=== PATIENT | female | born 1930 | race Asian ===

== ENCOUNTER 2019-02-06 15:25 | Inpatient (IN) | payer MEDICARE, OTHER ==
[~2019-02-06] VITALS: Ht 157.5 cm; Wt 69.4 kg
[2019-02-06] MEDS ORDERED: DEXAMETHASONE 10 MG/ML 1 ML INJ IV STA (15:34)
[2019-02-06] MEDS ORDERED: AZITHROMYCIN 500MG/NS (PMX) 250 ML IV STA (16:30)
[2019-02-06] MEDS ORDERED: SODIUM CHLORIDE 0.9% 1L BAG IV* STA (16:30)
[2019-02-06] MEDS ORDERED: CEFTRIAXONE 1 GM/50 ML (PMX) 50 ML IVPB STA (16:30)
[2019-02-06] MEDS ORDERED: ATOR10TA65 PO (16:48)
[2019-02-06] MEDS ORDERED: LOSA100T15 PO (16:48)
--- NOTE | 2019-02-06 18:52 | HP ---
Date/Time of Note Date/Time of Note DATE: 02/06/19 TIME: 18:46 Assessment/Plan VTE Prophylaxis SCD applied (from Nsg): Yes Pharmacological prophylaxis: heparin Assessment/Plan Hospital Course Elderly female resting in bed Alert and interactive Audibly wheezing Nonlabored but mildly tachypneic Rhythm regular rate and rhythm Neck veins are flat Abdomen is soft nontender nondistended This is an 89-year-old female with a history of COPD, CKD 3, and hypertension w ho presents with an acute COPD exacerbation Acute COPD exacerbation: -Steroids, bronchodilators, and azithromycin CKD 3,: -She has a known history of chronic kidney disease. I suspect she is at her baseline. We will trend her creatinine Result Diagram: 02/06/19 1547 02/06/19 1546 Results 24hrs Laboratory Tests Test 02/06/19 15:46 02/06/19 15:47 02/06/19 16:49 Sodium Level 139 Potassium Level 5.0 Chloride Level 111 H Carbon Dioxide Level 16 L Anion Gap 12 Blood Urea Nitrogen 58 H Creatinine 2.68 H Est Glomerular Filtrat Rate mL/min Glucose Level 173 Calcium Level 8.2 L Troponin I 0.014 White Blood Count 7.6 Red Blood Count 3.92 L Hemoglobin 11.5 L Hematocrit 36.6 L Mean Corpuscular Volume 93.4 Mean Corpuscular Hemoglobin 29.3 Mean Corpuscular Hemoglobin Concent 31.4 L Red Cell Distribution Width 13.2 Platelet Count 150 Mean Platelet Volume 10.5 H Immature Granulocytes % 0.300 Neutrophils % 50.6 Lymphocytes % 32.0 Monocytes % 14.9 H Eosinophils % 1.5 Basophils % 0.7 Nucleated Red Blood Cells % 0.0 Immature Granulocytes # 0.020 Neutrophils # 3.8 Lymphocytes # 2.4 Monocytes # 1.1 H Eosinophils # 0.1 Basophils # 0.1 Nucleated Red Blood Cells # 0.0 POC Venous Lactate 1.9 HPI/ROS Admit Date/Time Admit Date/Time Hx of Present Illness This is an 89-year-old female with a history of COPD, diabetes, and hypertension who presents with respiratory distress Patient is accompanied by her son who provides the history. She has developed wheezing and shortness of breath with cough for the last 3 days. She has a known history of COPD but does not appear to be on any medications for this. Today her son called 911 as she was visibly having a hard time breathing. She was given nebulizers in the field with benefit. Here remains in some difficulty and is having a tough time making full sentences but her breathing is nonlabored ROS Constitutional: no complaints, improved Eyes: no complaints ENT: no complaints Respiratory: no complaints Cardiovascular: no complaints Gastrointestinal: no complaints Genitourinary: no complaints Musculoskeletal: no complaints Skin: no complaints Neurologic: no complaints Endocrine: no complaints Lymphatic: no complaints Psychological: no complaints, nl mood/affect Immunologic: no complaints PMH/Family/Social Past Medical History COPD Hypertension Chronic kidney disease Coded Allergies: No Known Allergy (Unverified , 02/06/19) Past Surgical History Past Surgical Hx: no surgical history Family History Significant Family History: no pertinent family hx Social History Alcohol Use: none Smoking Status: Never smoker Drug Use: none Exam/Review of Systems Vital Signs Vitals Vital Signs Date Temp Pulse Resp B/P (MAP) Pulse Ox O2 O2 Flow FiO2 Time Delivery Rate 02/06/19 97.9 104 27 100/53 100 Room Air 18:22 (69) RAKAN REHMAN MD February 06, 2019 18:52
[2019-02-06] MEDS ORDERED: HYDROCODONE/APAP (5/325) TAB PO PRN (19:00)
[2019-02-06] MEDS ORDERED: NACL 0.9% 3 ML SYG IV SCH (19:00)
[2019-02-06] MEDS ORDERED: ONDANSETRON 4 MG INJ IV PRN (19:30)
[2019-02-06] MEDS ORDERED: ACETAMINOPHEN 325 MG TAB PO PRN (19:30)
--- NOTE | 2019-02-06 20:21 | ERD ---
ER Documentation Chief Complaint Chief Complaint BIB RA 89 FROM HOME FOR C/O SOB, COUGH X3 DAYS WITH SOME WHEEZING HPI This is an 89-year-old female history of COPD who presents the emergency with 3 days of cough and congestion. History is later provided by family member. The patient had described approximately 3 days of slightly productive cough and wheezing with shortness of breath that worsened today that prompted EMS phone call. The patient describes the symptoms as moderate though dramatically improved after breathing treatment in the field. No chest pressure or exertional symptoms. ROS All systems reviewed and are negative except as per history of present illness. 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) Hx Respiratory Disorders: Yes (COPD,A STHMA) Hx Cardiac Disorders: Yes (HTN) Hx Psychiatric Problems: No Hx Miscellaneous Medical Probl: Yes (KIDNEY FAILURE) Hx Alcohol Use: No Hx Substance Use: No Hx Tobacco Use: No Smoking Status: Never smoker FmHx Family History: No diabetes Physical Exam Vitals Vital Signs Date Temp Pulse Resp B/P (MAP) Pulse Ox O2 O2 Flow FiO2 Time Delivery Rate 02/06/19 97.9 104 27 100/53 100 Room Air 18:22 (69) 02/06/19 91 18 113/54 98 Room Air 17:26 (73) 02/06/19 100 26 93/52 (66) 99 Room Air 16:25 02/06/19 98.9 102 18 140/69 99 15:30 (92) Physical Exam General: Well developed, well nourished, no acute distress Head: Normocephalic, atraumatic. Eyes: Pupils equally reactive, EOM intact ENT: Moist mucous membranes Neck: Supple, no lymphadenopathy Respiratory: scant wheeze but good aeration Cardiovascular: RRR, no murmurs, rubs, or gallops Abdominal: Soft, non-tender, non-distended, no peritoneal signs : Deferred MSK: No edema, no unilateral swelling, right-sided deficit secondary to a subacute stroke Neurologic: Alert and oriented, prior right-sided deficit Skin: No rash Psych: Normal mood Result Diagram: 02/06/19 1547 02/06/19 1546 Results 24 hrs Laboratory Tests Test 02/06/19 15:46 02/06/19 15:47 02/06/19 16:49 02/06/19 18:55 Sodium Level 139 mmol/L Potassium Level 5.0 mmol/L Chloride Level 111 mmol/L Carbon Dioxide 16 mmol/L Level Anion Gap 12 Blood Urea Nitrogen 58 mg/dl Creatinine 2.68 mg/dl Est Glomerular mL/min Filtrat Rate mL/min Glucose Level 173 mg/dl Calcium Level 8.2 mg/dl Troponin I 0.014 ng/ml White Blood Count 7.6 10^3/ul Red Blood Count 3.92 10^6/ul Hemoglobin 11.5 g/dl Hematocrit 36.6 % Mean Corpuscular 93.4 fl Volume Mean Corpuscular 29.3 pg Hemoglobin Mean Corpuscular 31.4 g/dl Hemoglobin Concent Red Cell 13.2 % Distribution Width Platelet Count 150 10^3/UL Mean Platelet 10.5 fl Volume Immature 0.300 % Granulocytes % Neutrophils % 50.6 % Lymphocytes % 32.0 % Monocytes % 14.9 % Eosinophils % 1.5 % Basophils % 0.7 % Nucleated Red Blood 0.0 /100WBC Cells % Immature 0.020 10^3/ul Granulocytes # Neutrophils # 3.8 10^3/ul Lymphocytes # 2.4 10^3/ul Monocytes # 1.1 10^3/ul Eosinophils # 0.1 10^3/ul Basophils # 0.1 10^3/ul Nucleated Red Blood 0.0 10^3/ul Cells # POC Venous Lactate 1.9 mmol/L Lactic Acid Level 3.1 mmol/L Test 02/06/19 19:24 POC Venous Lactate 2.3 mmol/L Current Medications Medications Dose Sig/Jose Start Time Status Last (Trade) Ordered Route PRN Stop Time Admin Dose Reason Admin 10 mg ONCE STAT 02/06/19 DC 02/06/19 Dexamethasone IV 15:34 15:56 (Decadron) 02/06/19 15:35 Sodium 2,190 ml BOLUS OVER 2 02/06/19 DC 02/06/19 Chloride HOURS STAT 16:30 16:45 (NS) IV* 02/06/19 16:32 Ceftriaxone 50 ml @ ONCE STAT 02/06/19 DC 02/06/19 Sodium 100 mls/hr IVPB 16:30 17:00 02/06/19 16:59 Azithromycin 250 ml @ ONCE STAT 02/06/19 DC 02/06/19 250 mls/hr IV 16:30 17:25 02/06/19 17:29 Prednisone 40 mg DAILY PO 02/07/19 (Prednisone) 09:00 Albuterol/ 3 ml Q4H RESP 02/06/19 Ipratropium THERAPY HHN 21:00 (Duoneb) 250 mg DAILY PO 02/07/19 Azithromycin 09:00 (Zithromax) IV Flush 3 ml PER 02/06/19 (NS 3 ml) PROTOCOL IV 19:00 1 tab Q6H PRN 02/06/19 Acetaminophen PO .MOD PAIN 19:00 / 4-6 Hydrocodone Bitart ([place] (5/325)) Heparin 5,000 unit Q12 SC 02/06/19 Sodium 21:00 (Porcine) (Heparin (5000 Units/1ml)) Ondansetron 4 mg BRIDGE ORDER 02/06/19 HCl (Zofran PRN IV 19:30 Inj) NAUSEA/VOMITI 02/07/19 19:29 NG 650 mg ER BRIDGE 02/06/19 Acetaminophen PRN PO 19:30 (Tylenol .MILD PAIN 02/07/19 19:29 Tab) 1-3 OR TEMP Procedures/MDM EKG, MONITORS, & DIAGNOSTIC IMAGING: EKG: I reviewed and interpreted a 12-lead EKG. Rhythm: Normal sinus rhythm ST Changes: No contiguous ST segment elevations T waves: No contiguous T wave inversions Impression: No evidence of acute cardiac ischemia CXR IMPRESSION: Cardiomegaly with calcified atherosclerosis in the aorta. Atelectasis versus minimal focal infiltrate in the right upper lobe, along the right minor fissure. Scattered atelectasis in the remainder of the lungs. Hypoinflated lungs. LAB INTERPRETATION: I reviewed the laboratory testing and it shows nonspecific lactic acidosis MEDICAL DECISION MAKING: Patient presents with cough congestion with wheezing relieved by breathing treatment. Clinical exam and history is very consistent with COPD with exacerbation. Initially the patient did not have a family member therefore pipe connector was not available. Patient cannot verbalize what language she spoke. Later we got a better history when the family member arrived. The patient's laboratory testing are reassuring other than mild nonspecific lactic acidosis. The patient did have tachycardia and slight tachypnea. Given productive cough and symptoms this is concerning for possible community acquired pneumonia. ER COURSE: * Around 1630 was noted that the patient may have pneumonia. Her blood pressure is borderline. At that time blood cultures and broad-spectrum antibiotics were ordered. * Patient was given appropriate fluid resuscitation. Blood cultures prior to broad-spectrum antibiotics. Patient will be admitted. * Patient is stabilized and does not require positive pressure intervention or central line or pressors CONSULTATION: None DISPOSITION PLAN: Medical surgical admission Accepting care team and consultations: I discussed the current laboratory data, diagnostic imaging and emergency care provided. Admitting team: Dr. Chandler Admitting team indication: Insurance directed Sepsis Documentation: Patient's infectious symptoms have not stabilized and the patient is at risk of rapid decompensation. The patient will be admitted for careful hydration, anti biotic therapy, and infectious source control. SEVERE SEPSIS CRITERIA: Infectious source: Community-acquired pneumonia End organ damage indicated by: [Lactate > 2.0 mmol/L SEPSIS MANAGEMENT Time of recognition of sepsis: 1619. Time of recognition of severe sepsis: 1923 Time of recognition of septic shock: No septic shock at this time. 3 HOUR BUNDLE Blood cultures x 2 before broad-spectrum antibiotics: Yes 30 ml/kg NS bolus completed Initial lactate 1.9 Repeat lactate 2.3 of note there was a lactate of 3.1 but this was a lab and did not fit with patient's clinical picture. [id number] was repeated at the same time shows 2.3. SEPTIC SHOCK ASSESSMENT: No lactic acid > 4.0 No persistent hypotension (SBP < 90 or 40 mmHg drop, MAP < 65) despite 30 mL/kg IV fluid bolus VOLUME REASSESSMENT FOR SEPTIC SHOCK: The patient does not meet criteria for septic shock in the emergency department at this time PERSISTENT HYPOTENSION TREATMENT: Comfort care no Central line not Required Vasopressor started not required I considered further perfusion assessment with CVP measurement, SCVO2, bedside ultrasound volume assessment, passive leg raise, trial of further fluid bolus. And proceeded with 30 ml/kg fluid bolus of NSS, broad spectrum antibiotics, and admission. CRITICAL CARE Critical care time 35 minutes Emergent fluid management while maintaining close respiratory support. Provision of immediate and broad-spectrum antibiotic therapy. Simultaneous assessment for possible sources in order to direct targeted therapy. Consideration for invasive and chemical support to prevent cardiopulmonary collapse. Critical care time is independent of procedures performed. Departure Diagnosis: Primary Impression: Community acquired pneumonia Laterality: unspecified laterality Qualified Codes: J18.9 - Pneumonia, unspecified organism Additional Impressions: Severe sepsis Chronic kidney disease Chronic kidney disease stage: unspecified stage Qualified Codes: N18.9 - Chronic kidney disease, unspecified Condition: Stable FADIA HITCHCOCK MD February 06, 2019 20:21
[2019-02-06] MEDS: HEPARIN 5,000 UNIT/1 ML VIAL SC SCH (21:00)
[2019-02-06] MEDS ORDERED: SOD CHLORIDE 0.9% 500 ML IV ONE (23:00)
[2019-02-06 23:24] VITALS: BP 116/55; PULSE 88; RESP 20
[2019-02-07 02:00] VITALS: BP 109/56; PULSE 87; RESP 20
[2019-02-07] MEDS: ALBUTEROL/IPRATROPIUM (NEB) 3 ML AMP HHN SCH ×6 (04:31→21:05)
[2019-02-07] MEDS ORDERED: SOD CHLORIDE 0.9% 500 ML IV ONE (07:00)
[2019-02-07 08:25] VITALS: BP 110/63; PULSE 107; RESP 20
[2019-02-07] MEDS: HEPARIN 5,000 UNIT/1 ML VIAL SC SCH (09:00)
[2019-02-07] MEDS: AZITHROMYCIN 250 MG TAB PO SCH (09:05)
[2019-02-07] MEDS: predniSONE 20 MG TAB PO SCH (09:06)
--- NOTE | 2019-02-07 14:34 | PN ---
Date/Time of Note Date/Time of Note DATE: 02/07/19 TIME: 14:31 Assessment/Plan VTE Prophylaxis Risk score (from Nsg)>0 risk: 3 SCD applied (from Nsg): Yes Pharmacological prophylaxis: heparin Lines/Catheters IV Catheter Type (from Nrsg): Peripheral IV Assessment/Plan Hospital Course Elderly female resting in bed Alert and interactive Audibly wheezing Nonlabored Rhythm regular rate and rhythm Neck veins are flat Abdomen is soft nontender nondistended This is an 89-year-old female with a history of COPD, CKD 3, and hypertension who presents with an acute COPD exacerbation Acute COPD exacerbation: -Steroids, bronchodilators, and azithromycin CKD 3,: -She has a known history of chronic kidney disease. I suspect she is at her baseline. We will trend her creatinine She shows no signs of shock, i suspect lactic acidosis is from albuterol Result Diagram: 02/07/19 0457 02/07/19 0457 Results 24hrs Laboratory Tests Test 02/06/19 15:46 02/06/19 15:47 02/06/19 16:49 02/06/19 18:55 Sodium Level 139 Potassium Level 5.0 Chloride Level 111 H Carbon Dioxide Level 16 L Anion Gap 12 Blood Urea Nitrogen 58 H Creatinine 2.68 H Est Glomerular Filtrat Rate mL/min Glucose Level 173 Calcium Level 8.2 L Troponin I 0.014 White Blood Count 7.6 Red Blood Count 3.92 L Hemoglobin 11.5 L Hematocrit 36.6 L Mean Corpuscular 93.4 Volume Mean Corpuscular 29.3 Hemoglobin Mean Corpuscular 31.4 L Hemoglobin Concent Red Cell 13.2 Distribution Width Platelet Count 150 Mean Platelet Volume 10.5 H Immature 0.300 Granulocytes % Neutrophils % 50.6 Lymphocytes % 32.0 Monocytes % 14.9 H Eosinophils % 1.5 Basophils % 0.7 Nucleated Red Blood 0.0 Cells % Immature 0.020 Granulocytes # Neutrophils # 3.8 Lymphocytes # 2.4 Monocytes # 1.1 H Eosinophils # 0.1 Basophils # 0.1 Nucleated Red Blood 0.0 Cells # POC Venous Lactate 1.9 Lactic Acid Level 3.1 *H Test 02/06/19 19:24 02/06/19 22:07 02/07/19 04:57 02/07/19 10:58 POC Venous Lactate 2.3 *H Lactic Acid Level 4.5 *H 2.4 *H 3.5 *H White Blood Count 5.5 # Red Blood Count 3.49 L Hemoglobin 10.4 L Hematocrit 32.3 L Mean Corpuscular 92.6 Volume Mean Corpuscular 29.8 Hemoglobin Mean Corpuscular 32.2 Hemoglobin Concent Red Cell 13.3 Distribution Width Platelet Count 143 Mean Platelet Volume 11.1 H Immature 0.400 Granulocytes % Neutrophils % 75.1 Lymphocytes % 20.3 Monocytes % 4.0 Eosinophils % 0.0 Basophils % 0.2 Nucleated Red Blood 0.0 Cells % Immature 0.020 Granulocytes # Neutrophils # 4.1 Lymphocytes # 1.1 Monocytes # 0.2 L Eosinophils # 0.0 Basophils # 0.0 Nucleated Red Blood 0.0 Cells # Sodium Level 143 Potassium Level 5.8 H Chloride Level 118 H Carbon Dioxide Level 14 L Anion Gap 11 Blood Urea Nitrogen 48 H Creatinine 2.09 H Est Glomerular Filtrat Rate mL/min Glucose Level 159 Hemoglobin A1c 5.9 Calcium Level 7.8 L Total Bilirubin 0.1 L Direct Bilirubin 0.00 Indirect Bilirubin 0.1 Aspartate Amino 25 Transf (AST/SGOT) Alanine 26 Aminotransferase (AL T/SGPT) Alkaline Phosphatase 84 Total Protein 6.7 Albumin 3.1 L Globulin 3.60 H Albumin/Globulin 0.86 Ratio Subjective 24 Hr Interval Summary Free Text/Dictation Breathing improving Still not back to baseline however, with wheezign still Exam/Review of Systems Exam Vitals Vital Signs Date Temp Pulse Resp B/P (MAP) Pulse Ox O2 O2 Flow FiO2 Time Delivery Rate 02/07/19 96 26 97 21 13:59 02/07/19 98.1 110/63 Room Air 08:25 (79) Intake and Output 02/06/19 02/06/19 02/07/19 1515:00 23:00 07:00 IntakeIntake Total 2440 ml BalanceBalance 2440 ml Results Results 24hrs Laboratory Tests Test 02/06/19 15:46 02/06/19 15:47 02/06/19 16:49 02/06/19 18:55 Sodium Level 139 Potassium Level 5.0 Chloride Level 111 H Carbon Dioxide Level 16 L Anion Gap 12 Blood Urea Nitrogen 58 H Creatinine 2.68 H Est Glomerular Filtrat Rate mL/min Glucose Level 173 Calcium Level 8.2 L Troponin I 0.014 White Blood Count 7.6 Red Blood Count 3.92 L Hemoglobin 11.5 L Hematocrit 36.6 L Mean Corpuscular 93.4 Volume Mean Corpuscular 29.3 Hemoglobin Mean Corpuscular 31.4 L Hemoglobin Concent Red Cell 13.2 Distribution Width Platelet Count 150 Mean Platelet Volume 10.5 H Immature 0.300 Granulocytes % Neutrophils % 50.6 Lymphocytes % 32.0 Monocytes % 14.9 H Eosinophils % 1.5 Basophils % 0.7 Nucleated Red Blood 0.0 Cells % Immature 0.020 Granulocytes # Neutrophils # 3.8 Lymphocytes # 2.4 Monocytes # 1.1 H Eosinophils # 0.1 Basophils # 0.1 Nucleated Red Blood 0.0 Cells # POC Venous Lactate 1.9 Lactic Acid Level 3.1 *H Test 02/06/19 19:24 02/06/19 22:07 02/07/19 04:57 02/07/19 10:58 POC Venous Lactate 2.3 *H Lactic Acid Level 4.5 *H 2.4 *H 3.5 *H White Blood Count 5.5 # Red Blood Count 3.49 L Hemoglobin 10.4 L Hematocrit 32.3 L Mean Corpuscular 92.6 Volume Mean Corpuscular 29.8 Hemoglobin Mean Corpuscular 32.2 Hemoglobin Concent Red Cell 13.3 Distribution Width Platelet Count 143 Mean Platelet Volume 11.1 H Immature 0.400 Granulocytes % Neutrophils % 75.1 Lymphocytes % 20.3 Monocytes % 4.0 Eosinophils % 0.0 Basophils % 0.2 Nucleated Red Blood 0.0 Cells % Immature 0.020 Granulocytes # Neutrophils # 4.1 Lymphocytes # 1.1 Monocytes # 0.2 L Eosinophils # 0.0 Basophils # 0.0 Nucleated Red Blood 0.0 Cells # Sodium Level 143 Potassium Level 5.8 H Chloride Level 118 H Carbon Dioxide Level 14 L Anion Gap 11 Blood Urea Nitrogen 48 H Creatinine 2.09 H Est Glomerular Filtrat Rate mL/min Glucose Level 159 Hemoglobin A1c 5.9 Calcium Level 7.8 L Total Bilirubin 0.1 L Direct Bilirubin 0.00 Indirect Bilirubin 0.1 Aspartate Amino 25 Transf (AST/SGOT) Alanine 26 Aminotransferase (AL T/SGPT) Alkaline Phosphatase 84 Total Protein 6.7 Albumin 3.1 L Globulin 3.60 H Albumin/Globulin 0.86 Ratio Medications Medication Current Medications Prednisone (Prednisone) 40 mg DAILY PO Last administered on 02/07/19 09:06; Admin Dose 40 MG; Start 02/07/19 at 09:00 Albuterol/ Ipratropium (Duoneb) 3 ml Q4H RESP THERAPY HHN Last administered on 02/07/19at 13:59; Admin Dose 3 ML; Start 02/06/19 at 21:00 Azithromycin (Zithromax) 250 mg DAILY PO Last administered on 02/07/19at 09:05; Admin Dose 250 MG; Start 02/07/19 at 09:00 IV Flush (NS 3 ml) 3 ml PER PROTOCOL IV ; Start 02/06/19 at 19:00 Acetaminophen/ Hydrocodone Bitart ([place] (5/325)) 1 tab Q6H PRN PO .MOD PAIN 4- 6; Start 02/06/19 at 19:00 Ondansetron HCl (Zofran Inj) 4 mg BRIDGE ORDER PRN IV NAUSEA/VOMITING; Start 02/06/19 at 19:30; Stop 02/07/19 at 19:29 Acetaminophen (Tylenol Tab) 650 mg ER BRIDGE PRN PO .MILD PAIN 1-3 OR TEMP; Start 02/06/19 at 19:30; Stop 02/07/19 at 19:29 Ceftriaxone Sodium 50 ml @ 100 mls/hr Q24H IVPB ; Start 02/07/19 at 15:00 RAKAN REHMAN MD February 07, 2019 14:34
[2019-02-07 14:47] VITALS: BP 135/65; PULSE 129; RESP 20
[2019-02-07 16:06] VITALS: PULSE 102
[2019-02-07] MEDS: CEFTRIAXONE 1 GM/50 ML (PMX) 50 ML IVPB SCH (16:06)
[2019-02-07] MEDS ORDERED: VANCOMYCIN IV PER PHARMACY XX SCH (18:30)
[2019-02-07 20:00] VITALS: BP 125/62; PULSE 111; RESP 21
[2019-02-07] MEDS ORDERED: VANCOMYCIN HCL 1.25 GM in SOD CHLORIDE 0.9% 250 ML IVPB ONE (20:00)
[2019-02-08] MEDS: ALBUTEROL/IPRATROPIUM (NEB) 3 ML AMP HHN SCH ×6 (01:52→20:48)
[2019-02-08 02:00] VITALS: BP 117/58; PULSE 112; RESP 20
[2019-02-08 07:50] VITALS: BP 114/68; PULSE 106; RESP 18
[2019-02-08] MEDS: AZITHROMYCIN 250 MG TAB PO SCH (09:05)
[2019-02-08] MEDS: predniSONE 20 MG TAB PO SCH (09:05)
[2019-02-08] MEDS: CEFTRIAXONE 1 GM/50 ML (PMX) 50 ML IVPB SCH (13:55)
[2019-02-08 13:57] VITALS: BP 112/51; PULSE 105; RESP 18
--- NOTE | 2019-02-08 14:26 | PN ---
Date/Time of Note Date/Time of Note DATE: 02/08/19 TIME: 14:25 Assessment/Plan VTE Prophylaxis Risk score (from Nsg)>0 risk: 3 SCD applied (from Nsg): Yes Pharmacological prophylaxis: heparin Lines/Catheters IV Catheter Type (from Nrsg): Saline Lock Urinary Cath still in place: No Assessment/Plan Hospital Course Elderly female resting in bed Alert and interactive Audibly wheezing Nonlabored Rhythm regular rate and rhythm Neck veins are flat Abdomen is soft nontender nondistended This is an 89-year-old female with a history of COPD, CKD 3, and hypertension who presents with an acute COPD exacerbation Acute COPD exacerbation: -Steroids, bronchodilators, and azithromycin CKD 3,: -She has a known history of chronic kidney disease. I suspect she is at her baseline. We will trend her creatinine She shows no signs of shock, i suspect lactic acidosis is from albuterol [facility] Result Diagram: 02/07/19 0457 02/07/19 0457 Subjective 24 Hr Interval Summary Free Text/Dictation Continues to have wheezing but improving Exam/Review of Systems Exam Vitals Vital Signs Date Temp Pulse Resp B/P (MAP) Pulse Ox O2 O2 Flow FiO2 Time Delivery Rate 02/08/19 97.9 105 18 112/51 98 13:57 (71) 02/08/19 21 13:33 02/07/19 Room Air 14:47 Intake and Output 02/07/19 02/07/19 02/08/19 1515:00 23:00 07:00 IntakeIntake Total 500 ml 50 ml 250 ml BalanceBalance 500 ml 50 ml 250 ml Medications Medication Current Medications Prednisone (Prednisone) 40 mg DAILY PO Last administered on 02/08/19at 09:05; Admin Dose 40 MG; Start 02/07/19 at 09:00 Albuterol/ Ipratropium (Duoneb) 3 ml Q4H RESP THERAPY HHN Last administered on 02/08/19at 13:33; Admin Dose 3 ML; Start 02/06/19 at 21:00 Azithromycin (Zithromax) 250 mg DAILY PO Last administered on 02/08/19at 09:05; Admin Dose 250 MG; Start 02/07/19 at 09:00 IV Flush (NS 3 ml) 3 ml PER PROTOCOL IV ; Start 5/29/19 at 19:00 Acetaminophen/ Hydrocodone Bitart ([place] (5/325)) 1 tab Q6H PRN PO .MOD PAIN 4- 6; Start 02/06/19 at 19:00 Ceftriaxone Sodium 50 ml @ 100 mls/hr Q24H IVPB Last administered on 02/08/19at 13:55; Admin Dose 100 MLS/HR; Start 02/07/19 at 15:00 Vancomycin HCl (Vanco Iv Per Pharmacy) VANCOMYCIN PER PHARMACY PER PROTOCOL XX ; Start 02/07/19 at 18:30 Vancomycin HCl 250 ml @ 125 mls/hr Q48H IVPB ; Start 02/09/19 at 20:00 RAKAN REHMAN MD February 08, 2019 14:26
[2019-02-08 17:42] VITALS: BP 154/70; PULSE 117; RESP 17
[2019-02-08 20:28] VITALS: BP 111/63; PULSE 110; RESP 18
[2019-02-09] VITALS (15 sets, daily range): BP systolic 83–141; BP diastolic 45–72; PULSE 75–178; RESP 18–22
[2019-02-09] MEDS: ALBUTEROL/IPRATROPIUM (NEB) 3 ML AMP HHN SCH ×3 (01:58→08:35)
[2019-02-09] MEDS ORDERED: MIDAZOLAM 1 MG/ML 2 ML INJ ONE (07:00)
[2019-02-09] MEDS: AZITHROMYCIN 250 MG TAB PO SCH (09:44)
[2019-02-09] MEDS: predniSONE 20 MG TAB PO SCH (09:44)
--- NOTE | 2019-02-09 14:20 | PN ---
Date/Time of Note Date/Time of Note DATE: 02/09/19 TIME: 14:17 Assessment/Plan VTE Prophylaxis Risk score (from Nsg)>0 risk: 6 SCD applied (from Nsg): Yes Pharmacological prophylaxis: heparin Lines/Catheters IV Catheter Type (from Nrsg): Saline Lock Urinary Cath still in place: No Assessment/Plan Hospital Course Elderly female resting in bed Alert and interactive Audibly wheezing Nonlabored Rhythm regular rate and rhythm Neck veins are flat Abdomen is soft nontender nondistended This is an 89-year-old female with a history of COPD, CKD 3, and hypertension who presents with an acute COPD exacerbation SVT: - S/p DC cardioversion - Continue metoprolol - Stop albuterol and start Xopenex Acute COPD exacerbation: -Steroids, bronchodilators, and azithromycin CKD 3,: -She has a known history of chronic kidney disease. I suspect she is at her baseline. We will trend her creatinine Coag neg staph bacteremia: - Contaminant, will dc vanco She shows no signs of shock, i suspect lactic acidosis is from albuterol Dc home [facility] tomorrow or 2 days Result Diagram: 02/07/19 0457 02/09/19 0436 Results 24hrs Laboratory Tests Test 02/09/19 04:36 02/09/19 13:36 Blood Urea Nitrogen 53 H Creatinine 2.41 H Bedside Glucose 147 Subjective 24 Hr Interval Summary Free Text/Dictation Patient had [employer]WORK [employer] called for SVT: - Arrived at bedside, HR 180-200. Patient clutching chest. Alert, interactive. On monitor appeared regular, narrow complex consistent with SVT. - She was given adenosine 6 wiht no conversion - Then adenosine 12 with very brief conversion to sinus for a few seconds then SVT recurred - Then adenosine 12 again wiht now response - BP 90/60 - Given 5 IV metoprolol no response - HR remained about 180s - At this point 2 mg versed given and DCCV was performed with conversion to NSR - Amiodarone 150 mg given - Patient comfortable, alert and interactive Exam/Review of Systems Exam Vitals Vital Signs Date Temp Pulse Resp B/P (MAP) Pulse Ox O2 O2 Flow FiO2 Time Delivery Rate 02/09/19 97.8 77 21 83/45 (58) 96 Room Air 14:10 02/09/19 21 08:35 Intake and Output 02/08/19 02/08/19 02/09/19 1515:00 23:00 07:00 IntakeIntake Total 50 ml 480 ml 240 ml OutputOutput Total 1 ml BalanceBalance 50 ml 479 ml 240 ml Results Results 24hrs Laboratory Tests Test 02/09/19 04:36 02/09/19 13:36 Blood Urea Nitrogen 53 H Creatinine 2.41 H Bedside Glucose 147 Medications Medication Current Medications Prednisone (Prednisone) 40 mg DAILY PO Last administered on 02/09/19at 09:44; Admin Dose 40 MG; Start 02/07/19 at 09:00 Azithromycin (Zithromax) 250 mg DAILY PO Last administered on 02/09/19at 09:44; Admin Dose 250 MG; Start 02/07/19 at 09:00 IV Flush (NS 3 ml) 3 ml PER PROTOCOL IV ; Start 02/06/19 at 19:00 Acetaminophen/ Hydrocodone Bitart ([place] (5/325)) 1 tab Q6H PRN PO .MOD PAIN 4- 6; Start 02/06/19 at 19:00 Ceftriaxone Sodium 50 ml @ 100 mls/hr Q24H IVPB Last administered on 02/08/19at 13:55; Admin Dose 100 MLS/HR; Start 02/07/19 at 15:00 Vancomycin HCl (Vanco Iv Per Pharmacy) VANCOMYCIN PER PHARMACY PER PROTOCOL XX ; Start 02/07/19 at 18:30 Vancomycin/Sodium Chloride 250 ml @ 125 mls/hr Q48H IVPB ; Start 02/09/19 at 20:00 Levalbuterol (Xopenex Neb) 0.31 mg Q6H RESP THERAPY HHN ; Start 02/09/19 at 20:00 RAKAN REHMAN MD Feb 09, 2019 14:20
[2019-02-09] MEDS: CEFTRIAXONE 1 GM/50 ML (PMX) 50 ML IVPB SCH (15:20)
[2019-02-09] MEDS: METOPROLOL (XL) 50 MG TAB PO SCH (15:20)
[2019-02-09] MEDS: LEVALBUTEROL (NEB) 0.31 MG/3 ML AMP HHN SCH (19:38)
[2019-02-09] MEDS ORDERED: VANCOMYCIN 750 MG (PMX) 250 ML IVPB SCH (20:00)
[2019-02-09] MEDS ORDERED: VANCOMYCIN 1 GM 250 ML IVPB SCH (20:00)
[2019-02-09] MEDS ORDERED: INSULIN REGULAR, HUMAN 100 UNIT/1 ML 3ML VIAL IVP ONE (22:20)
[2019-02-09] MEDS ORDERED: SODIUM POLYSTYRENE 15 GM KIT (POWDER + SORBITOL) PO ONE (22:30)
[2019-02-09] MEDS ORDERED: DEXTROSE 50% 50 ML SYRINGE IV PRN (22:30)
[2019-02-09] MEDS ORDERED: ALBUTEROL/IPRATROPIUM (NEB) 3 ML AMP HHN PRN (22:30)
[2019-02-10] VITALS (12 sets, daily range): BP systolic 98–135; BP diastolic 53–66; PULSE 71–86; RESP 16–21
[2019-02-10] MEDS: LEVALBUTEROL (NEB) 0.31 MG/3 ML AMP HHN SCH ×4 (02:08→20:25)
[2019-02-10] MEDS ORDERED: ADENOSINE 3 MG/ML SYRINGE IV ONE (07:00)
[2019-02-10] MEDS: AZITHROMYCIN 250 MG TAB PO SCH (08:01)
[2019-02-10] MEDS: predniSONE 20 MG TAB PO SCH (08:01)
[2019-02-10] MEDS: METOPROLOL (XL) 50 MG TAB PO SCH (08:01)
[2019-02-10] MEDS ORDERED: BUDE6HFA INHALATION (15:38)
[2019-02-10] MEDS ORDERED: METO-319 PO (15:38)
[2019-02-10] MEDS ORDERED: PRED20TA PO (15:38)
[2019-02-10] MEDS ORDERED: ALBU18HF INHALATION (15:38)
--- NOTE | 2019-02-10 15:40 | PDOCDIS ---
Discharge Instructions DIAGNOSIS Discharge Diagnosis COPD exacerbation CONDITION [id number] Patient Condition: [id number] Stable FOLLOW UP/APPOINTMENTS Follow-up Plan I have prescribed 4 more days of prednisone to take for your COPD flare I have also prescribed you a symbicort inhaler to take everyday as well as an albuterol inhaler to take if you shortness of breath flares up I have also prescribed metoprolol which is a medication to regulate your heart rate Return to the emergency room if you have any shortness of breath or any other concerning symptoms RAKAN REHMAN MD Feb 10, 2019 15:40
--- NOTE | 2019-02-10 15:42 | DS ---
Date/Time of Note Date/Time of Note DATE: 02/10/19 TIME: 15:41 Discharge Summary Admission/Discharge Info Admit Date/Time February 06, 2019 at 19:24 Discharge Date/Time Discharge Diagnosis COPD exacerbation Patient Condition: Stable Hx of Present Illness This is an 89-year-old female with a history of COPD, diabetes, and hypertension who presents with respiratory distress Patient is accompanied by her son who provides the history. She has developed wheezing and shortness of breath with cough for the last 3 days. She has a known history of COPD but does not appear to be on any medications for this. Today her son called 911 as she was visibly having a hard time breathing. She was given nebulizers in the field with benefit. Here remains in some difficulty and is having a tough time making full sentences but her breathing is nonlabored Hospital Course This is an 89-year-old female with a history of COPD, CKD 3, and hypertension who presents with an acute COPD exacerbation She was treated with antibiotics, prednisone and bronchodilators and her respiratory symptoms improved. I prescribed 4 more days of prednisone, symibocrt and albuterol at discharge He hospitalization was complicated by SVT which required DCCV. She remained stable with metoprolol following this. Home Meds Reported Medications Atorvastatin Calcium (Atorvastatin Calcium) 10 Mg Tablet, 10 MG PO QHS, #30 TAB 02/06/19 Losartan Potassium* (Losartan Potassium*) 100 Mg Tablet, 100 MG PO DAILY, TAB 02/06/19 Follow-up Plan I have prescribed 4 more days of prednisone to take for your COPD flare I have also prescribed you a symbicort inhaler to take everyday as well as an albuterol inhaler to take if you shortness of breath flares up I have also prescribed metoprolol which is a medication to regulate your heart rate Return to the emergency room if you have any shortness of breath or any other concerning symptoms Primary Care Provider Not On Staff Doctor Pending Labs Laboratory Tests Test 02/09/19 20:52 02/09/19 22:42 02/09/19 23:04 02/10/19 00:55 Sodium Level 136 mmol/L (135-144 ) Potassium 6.0 Level mmol/L (3.5-5.1 ) Chloride Level 112 mmol/L (97-110) Carbon Dioxide 14 Level mmol/L (21-31) Anion Gap 10 (5-13) Blood Urea 62 mg/dl (7-20) Nitrogen Creatinine 2.40 mg/dl (0.44-1.0 0) Est Glomerular mL/min (>60) Filtrat Rate mL/min Glucose Level 175 mg/dl (70-220) Calcium Level 8.0 mg/dl (8.4-10.2 ) Bedside 143 168 Glucose mg/dL (70-220) mg/dL (70-220) Blood Gas Blood arterial Specimen Source Arterial Blood 02/09/2019 11:15 Date Drawn :47 PM Arterial Blood 7.310 (7.350-7 pH .450) (Temp corrected ) Arterial Blood 30.6 pCO2 mmhg (35-45) (Temp correct) Arterial Blood 138.7 pO2 mmHG (80-90.0) (Temp corrected ) Arterial Blood 15.1 HCO3 mmol/L (22.0-2 6.0) Arterial Blood -10.0 Base Excess mmol/L (-3.0-3 ) Arterial Blood 98.4 Oxygen Saturati mmHG (95.0-100 on .0) Epifanio Test N/A Arterial Blood LB Gas Puncture Site Arterial 0.3 Blood Carboxyhe % (0.0-3.0) moglobin Arterial Blood 0.2 Methemoglobin % (0.0-1.5) Blood Gas A-a 24.8 O2 mmHg (7.0-24.0 Differential ) Oxyhemoglobin 97.9 Percent % (93.0-99.0) Blood Gas 37.0 C Temperature Blood Gas NASAL CANNULA Modality FiO2 28.0 % Blood Gas CO Notified Whom Blood Gas 02/09/2019 11:31 Notified Time :19 PM Test 02/10/19 05:02 White Blood 10.1 Count 10^3/ul (4.8-10 .8) Red Blood 3.34 Count 10^6/ul (4.20-5 .40) Hemoglobin 9.9 g/dl (12.0-16.0 ) Hematocrit 30.7 % (37.0-47.0) Mean 91.9 Corpuscular fl (82.0-101.0) Volume Mean 29.6 Corpuscular pg (29.0-33.0) Hemoglobin Mean 32.2 Corpuscular g/dl (32.0-37.0 Hemoglobin Conc ) ent Red Cell 13.4 Distribution % (11.5-14.5) Width Platelet Count 156 10^3/UL (140-41 5) Mean Platelet 11.7 Volume fl (7.4-10.4) Immature 0.900 Granulocytes % % (0.001-0.429) Neutrophils % % (39.0-77.0) Segmented 78 % (39-77) Neutrophils % (Manual) Lymphocytes % % (15.0-51.0) Lymphocytes % 19 % (15-51) (Manual) Reactive 1 % (0-0) Lymphocytes % (Manual) Monocytes % % (0.0-11.0) Monocytes % 2 % (0-11) (Manual) Eosinophils % % (0.0-7.0) Basophils % % (0.0-2.0) Nucleated Red 0.0 Blood Cells % /100WBC (0.0-0. 0) Immature 0.090 Granulocytes # 10^3/ul (0.0-0. 031) Neutrophils # 10^3/ul (1.6-7. 5) Lymphocytes 1.9 (Manual) 10^3/ul (0.8-2. 9) Lymphocytes # 10^3/ul (0.8-2. 9) Reactive 0.1 Lymphocytes # 10^3/ul (0.0-0. 0) Monocytes # 10^3/ul (0.3-0. 9) Monocytes # 0.2 (Manual) 10^3/ul (0.3-0. 9) Eosinophils # 10^3/ul (0.0-0. 5) Basophils # 10^3/ul (0.0-0. 1) Nucleated Red 10^3/ul (0.0-0. Blood Cells # 0) Platelet NORMAL Estimate Giant Platelets 7 % (0-0) Sodium Level 139 mmol/L (135-144 ) Potassium 5.3 Level mmol/L (3.5-5.1 ) Chloride Level 116 mmol/L (97-110) Carbon Dioxide 15 Level mmol/L (21-31) Anion Gap 8 (5-13) Blood Urea 64 mg/dl (7-20) Nitrogen Creatinine 2.19 mg/dl (0.44-1.0 0) Est Glomerular mL/min (>60) Filtrat Rate mL/min Glucose Level 101 mg/dl (70-220) Calcium Level 8.2 mg/dl (8.4-10.2 ) RAKAN REHMAN MD Feb 10, 2019 15:42
[2019-02-10] MEDS: CEFTRIAXONE 1 GM/50 ML (PMX) 50 ML IVPB SCH (15:58)
== END 2019-02-10 23:20 | disposition home or self-care (01) | DRG 191 ==
LOC: E/R 15:25 → SUATTDRO 17:49 → 2NE 19:24 → 6WM 02-09 14:02
PROVIDERS: ADMIT Internal Medicine; ATTEND Internal Medicine
PROC: 5A2204Z Restoration of Cardiac Rhythm, Single (ICD-10-PCS; principal; 2019-02-09)
PROC: 4A033R1 Measurement of Arterial Saturation, Peripheral, Percutaneous Approach (ICD-10-PCS; 2019-02-09)
DX: J44.1 Chronic obstructive pulmonary disease with (acute) exacerbation (principal); E87.2 Acidosis; I69.351 Hemiplegia and hemiparesis following cerebral infarction affecting right dominant side; I47.1 Supraventricular tachycardia; I12.9 Hypertensive chronic kidney disease with stage 1 through stage 4 chronic kidney disease, or unspecified chronic kidney disease; N18.3 Chronic kidney disease, stage 3 (moderate); E11.22 Type 2 diabetes mellitus with diabetic chronic kidney disease
CPT/HCPCS: 36600; 71045; 80048; 80053; 82565; 82803; 82962; 83036; 83605; 84484; 84520; 85025; 93005; 94640; 94664; 96361; 96365; 96367; 96375; 97161; J0456; J0696; J1100; J1644; J1815; J2250; J3370; J7030; J7040; J7050; J7512

== ENCOUNTER 2019-03-04 02:14 | Inpatient (IN) | payer MEDICARE, OTHER ==
[~2019-03-04] VITALS: Ht 152.4 cm; Wt 63.5 kg
[~2019-03-04 02:14] MED LIST: ALBU18HF INHALATION; ATOR10TA65 PO; BUDE6HFA INHALATION; LOSA100T15 PO; METO-319 PO; PRED20TA PO
[2019-03-04] MEDS ORDERED: SOD CHLORIDE 0.9% 500 ML IV STA (02:27)
[2019-03-04] MEDS ORDERED: SOD CHLORIDE 0.9% 1,000 ML IV SCH ×2 (05:47→22:30)
--- NOTE | 2019-03-04 05:47 | ERD ---
ER Documentation Chief Complaint Chief Complaint R89. ALTERED MORE THAN USUAL, STATED BY SON. HPI This is an 81-year-old female who is here with her son. The son tells me that yesterday she started getting confused. She said that he was not her son that she did know who her son was. She did not recognize him. He said he tried to feed her and give her something to drink and she refused to eat or drink anything. Says she is had little intake since yesterday afternoon. She has not had a cough or nausea vomiting or a fever. He said that she is done this before and she had a urinary tract infection. The patient is a very limited historian does not speak Irish ROS All systems reviewed and are negative except as per history of present illness. Medications Home Meds Active Scripts Metoprolol Succinate* (Toprol XL*) 50 Mg Tab.er.24h, 50 MG PO DAILY for 30 Days, #30 TAB 3 Refills Prov:RAKAN REHMAN MD 02/10/19 Albuterol Sulfate* (Ventolin HFA*) 18 Gm Hfa.aer.ad, 2 PUFF INHALATION Q4H PRN for SHORTNESS OF BREATH, #1 INHALER 5 Refills Prov:RAKAN REHMAN MD 02/10/19 Budesonide-Formoterol Fumarate* (Symbicort*) 160-4.5 Hfa.aer.ad, 2 PUFF INHALATION BID, #1 EACH 4 Refills Prov:RAKAN REHMAN MD 02/10/19 Prednisone* (Prednisone*) 20 Mg Tab, 40 MG PO DAILY for 4 Days, #4 TAB Prov:RAKAN REHMAN MD 02/10/19 Reported Medications Atorvastatin Calcium (Atorvastatin Calcium) 10 Mg Tablet, 10 MG PO QHS, #30 TAB 02/06/19 Losartan Potassium* (Losartan Potassium*) 100 Mg Tablet, 100 MG PO DAILY, TAB 02/06/19 Allergies Allergies: Coded Allergies: No Known Allergy (Unverified , 02/06/19) PMhx/Soc History of Surgery: No Anesthesia Reaction: No Hx Neurological Disorder: No Hx Respiratory Disorders: Yes (COPD) Hx Cardiac Disorders: Yes (HTN) Hx Psychiatric Problems: No Hx Miscellaneous Medical Probl: No Hx Alcohol Use: No Hx Substance Use: No Hx Tobacco Use: No Smoking Status: Unknown if ever smoked FmHx Family History: No coronary disease Physical Exam Vitals Vital Signs Date Temp Pulse Resp B/P (MAP) Pulse Ox O2 O2 Flow FiO2 Time Delivery Rate 03/04/19 80 25 138/58 95 Room Air 05:01 (84) 03/04/19 97.8 87 22 124/68 98 Room Air 03:28 (86) 03/04/19 97.1 98 24 129/71 98 02:16 (90) Physical Exam Const: Well-developed, well-nourished Head: Atraumatic, normocephalic Eyes: Normal Conjunctiva, PERRLA, EOMI, normal sclera, no nystagmus ENT: Normal External Ears, Nose and Mouth, moist mucus membranes. Neck: Full range of motion. No meningismus, no lymphadenopathy. Resp: Clear to auscultation bilaterally, no wheezing, rhonchi, rales Cardio: Regular rate and rhythm, no murmurs, S1 S2 present Abd: Soft, non tender x 4, non distended. Normal bowel sounds, no guarding or rebound, no pulsitile abdominal masses or bruits Skin: No petechiae or rashes, no ecchymosis , no maculopapular rash Back: No midline or flank tenderness Ext: No cyanosis, or edema, FROM x 4, normal inspection, neurovascularly intact x 4 Neur: Awake and alert, oriented x1 right side paralysis from old stroke, sensation intact x 4, cerebellum intact Psych: Normal Mood and Affect Result Diagram: 03/04/1921903/04/19 0220 Results 24 hrs Laboratory Tests Test 03/04/19 02:20 03/04/19 02:29 03/04/19 03:00 White Blood Count 10.9 10^3/ul Red Blood Count 3.82 10^6/ul Hemoglobin 11.2 g/dl Hematocrit 35.5 % Mean Corpuscular Volume 92.9 fl Mean Corpuscular Hemoglobin 29.3 pg Mean Corpuscular 31.5 g/dl Hemoglobin Concent Red Cell Distribution Width 12.7 % Platelet Count 418 10^3/UL Mean Platelet Volume 10.5 fl Immature Granulocytes % 0.700 % Neutrophils % 61.2 % Lymphocytes % 26.7 % Monocytes % 7.3 % Eosinophils % 3.5 % Basophils % 0.6 % Nucleated Red Blood Cells % 0.0 /100WBC Immature Granulocytes # 0.080 10^3/ul Neutrophils # 6.7 10^3/ul Lymphocytes # 2.9 10^3/ul Monocytes # 0.8 10^3/ul Eosinophils # 0.4 10^3/ul Basophils # 0.1 10^3/ul Nucleated Red Blood Cells # 0.0 10^3/ul Sodium Level 143 mmol/L Potassium Level 5.0 mmol/L Chloride Level 112 mmol/L Carbon Dioxide Level 20 mmol/L Anion Gap 11 Blood Urea Nitrogen 42 mg/dl Creatinine 2.04 mg/dl Est Glomerular Filtrat mL/min Rate mL/min Glucose Level 112 mg/dl Calcium Level 8.7 mg/dl Total Bilirubin 0.2 mg/dl Direct Bilirubin 0.00 mg/dl Indirect Bilirubin 0.2 mg/dl Aspartate Amino 27 IU/L Transf (AST/SGOT) Alanine 13 IU/L Aminotransferase (ALT/SGPT) Alkaline Phosphatase 93 IU/L Troponin I 0.023 ng/ml Total Protein 8.2 g/dl Albumin 3.8 g/dl Globulin 4.40 g/dl Albumin/Globulin Ratio 0.86 POC Venous Lactate 0.9 mmol/L Urine Color YELLOW Urine Clarity CLEAR Urine pH 5.0 Urine Specific [place] 1.012 Urine Ketones NEGATIVE mg/dL Urine Nitrite NEGATIVE mg/dL Urine Bilirubin NEGATIVE mg/dL Urine Urobilinogen NEGATIVE mg/dL Urine Leukocyte Esterase NEGATIVE Tavo/ul Urine Microscopic RBC 0 /HPF Urine Microscopic WBC 0 /HPF Urine Hemoglobin NEGATIVE mg/dL Urine Glucose 1+ mg/dL Urine Total Protein 1+ mg/dl Current Medications Medications Dose Sig/Jose Start Time Status Last (Trade) Ordered Route PRN Stop Time Admin Dose Reason Admin Sodium 500 ml @ Q1H STAT 03/04/19 DC 03/04/19 Chloride 500 mls/hr IV 02:27 02:45 03/04/19 03:26 Procedures/MDM CT scan reviewed by me shows volume loss with evidence of an old left parietal stroke, do not see any acute bleed but official reading is pending. Chest x-ray is pending read. But there may be some right lower lobe atelectasis/early infiltrate Patient does not have a UTI. Does have a low CO2 and elevated BUN and creatinine with prerenal azotemia slightly dehydrated. We will admit the patient for IV fluids and work-up for altered mental status of uncertain etiology. May need an MRI Departure Diagnosis: Primary Impression: Altered mental status Altered mental status type: unspecified Qualified Codes: R41.82 - Altered mental status, unspecified Condition: Stable ERASMO CRABTREE DO Mar 04, 2019 05:47
[2019-03-04] MEDS ORDERED: ACETAMINOPHEN 325 MG TAB PO PRN ×2 (06:00→11:00)
[2019-03-04] MEDS ORDERED: ONDANSETRON 4 MG INJ IV PRN ×2 (06:00→11:00)
--- NOTE | 2019-03-04 10:05 | QN ---
Documentation Comment Observation Note: Time: 4 hours Family Hx: Negative for coronary disease Evaluation: Multiple exams showed improving symptoms and no evidence of clinical decompensation. NEREIDA MCCLAIN MD Mar 04, 2019 10:05
[2019-03-04] MEDS ORDERED: LABETALOL HCL 20MG INJ IV ONE (10:30)
[2019-03-04] MEDS ORDERED: NACL 0.9% 3 ML SYG IV SCH (11:00)
[2019-03-04] MEDS ORDERED: LOSARTAN 50 MG TAB PO SCH (11:00)
[2019-03-04] MEDS ORDERED: METOPROLOL (XL) 50 MG TAB PO SCH (11:00)
[2019-03-04] MEDS ORDERED: OLANZAPINE (ODT) 5 MG TAB ODT ONE (11:00)
--- NOTE | 2019-03-04 11:53 | HP ---
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 1. Acute encephalopathy. Etiology unclear. Brain CT scan negative. Will obtain a brain MRI for further evaluation. Neurology and psychiatry consult. ST and physical therapy evaluation. 2. Acute on chronic kidney disease. Patient has a history of CKD stage III. Current elevation in BUN and creatinine could be secondary to her dehydration. Continue IV fluids. Obtain nephrology consult. Hold nephrotoxic medications. 3. Hypertension. Resume antihypertensives. Hold ARB. 4. History of stroke. Continue ASA and statins. 5. COPD. No evidence of any exacerbation. Continue PRN EDELMIRA. 6. Normocytic anemia. Most probably anemia of chronic disease. Monitor H&H closely. Plan: The patient will be admitted to inpatient floor. The patient will be started on a pure diet. The patient will be started on DVT prophylaxis. The patient will remain a full code. Activities will be bedrest. The rest of the patient's management will be based on the clinical course, inputs from consultants, and the results of diagnostic studies. Based on the patient's clinical presentation, she most probably requires at least 2 midnights stay for further management and evaluation of her clinical presentation. The patient was seen in collaboration with Dr. Chandler. Result Diagram: 03/04/19 0220 03/04/19 0220 Results 24hrs Laboratory Tests Test 03/04/19 02:20 03/04/19 02:29 03/04/19 03:00 White Blood Count 10.9 H Red Blood Count 3.82 L Hemoglobin 11.2 L Hematocrit 35.5 L Mean Corpuscular Volume 92.9 Mean Corpuscular Hemoglobin 29.3 Mean Corpuscular Hemoglobin Concent 31.5 L Red Cell Distribution Width 12.7 Platelet Count 418 #H Mean Platelet Volume 10.5 H Immature Granulocytes % 0.700 H Neutrophils % 61.2 Lymphocytes % 26.7 Monocytes % 7.3 Eosinophils % 3.5 Basophils % 0.6 Nucleated Red Blood Cells % 0.0 Immature Granulocytes # 0.080 H Neutrophils # 6.7 Lymphocytes # 2.9 Monocytes # 0.8 Eosinophils # 0.4 Basophils # 0.1 Nucleated Red Blood Cells # 0.0 Sodium Level 143 Potassium Level 5.0 Chloride Level 112 H Carbon Dioxide Level 20 L Anion Gap 11 Blood Urea Nitrogen 42 H Creatinine 2.04 H Est Glomerular Filtrat Rate mL/min Glucose Level 112 Calcium Level 8.7 Total Bilirubin 0.2 Direct Bilirubin 0.00 Indirect Bilirubin 0.2 Aspartate Amino Transf (AST/SGOT) 27 Alanine Aminotransferase (ALT/SGPT) 13 Alkaline Phosphatase 93 Troponin I 0.023 Total Protein 8.2 H Albumin 3.8 Globulin 4.40 H Albumin/Globulin Ratio 0.86 POC Venous Lactate 0.9 Urine Color YELLOW Urine Clarity CLEAR Urine pH 5.0 Urine Specific [place] 1.012 Urine Ketones NEGATIVE Urine Nitrite NEGATIVE Urine Bilirubin NEGATIVE Urine Urobilinogen NEGATIVE Urine Leukocyte Esterase NEGATIVE Urine Microscopic RBC 0 Urine Microscopic WBC 0 Urine Hemoglobin NEGATIVE Urine Glucose 1+ H Urine Total Protein 1+ H HPI/ROS Admit Date/Time Admit Date/Time Mar 04, 2019 at 05:47 Hx of Present Illness This is an 89-year-old female with comorbidities including hypertension, COPD, stroke with chronic bedridden status, and CKD. The patient was brought to the emergency room by family members because of confusion. The patient was also refusing to eat or drink. There was no reported vomiting or fevers. The patient is bedridden since her stroke and she is being taken care of by her family members. The patient is not primarily Korean speaking and therefore, the details were obtained by reviewing the chart and by talking to the staff. In the emergency room, the patient was noticed to have a BUN and creatinine 42 and 2 respectively. The patient's brain CT scan was negative for any acute findings. The patient's chest x-ray was negative for any acute findings. The patient's urinalysis was negative for any evidence of any infection. ROS Subjective hx not possible: other (Language barrier) PMH/Family/Social Past Medical History 1. HTN. 2. COPD. 3. Stroke. 4. Chronic bedridden status. 5. CKD. Medications Current Medications Sodium Chloride 1,000 ml @ 80 mls/hr [id number] IV Last administered on 03/04/19at 06:17; Admin Dose 80 MLS/HR; Start 03/04/19 at 05:47; Stop 03/04/19 at 18:16 IV Flush (NS 3 ml) 3 ml PER PROTOCOL IV ; Start 03/04/19 at 11:00 Ondansetron HCl (Zofran Inj) 4 mg Q6H PRN IV NAUSEA/VOMITING; Start 03/04/19 at 11:00 Acetaminophen (Tylenol Tab) 650 mg Q6H PRN PO .PAIN 1-3 OR TEMP; Start 03/04/19 at 11:00 Atorvastatin Calcium (Lipitor) 10 mg QHS PO ; Start 03/04/19 at 21:00 Losartan Potassium (Cozaar) 100 mg DAILY PO ; Start 03/04/19 at 11:00 Metoprolol Succinate (Toprol Xl) 50 mg DAILY PO ; Start 03/04/19 at 11:00 Miscellaneous Information 2 puff BID INHALATION ; Start 03/04/19 at 21:00; Status UNV Coded Allergies: No Known Allergy (Unverified , 03/04/19) Family History Significant Family History: no pertinent family hx Social History Lives at home. Family provides 24 hour care. Alcohol Use: none Smoking Status: Unknown if ever smoked Drug Use: none Exam/Review of Systems Vital Signs Vitals Vital Signs Date Temp Pulse Resp B/P (MAP) Pulse Ox O2 O2 Flow FiO2 Time Delivery Rate 03/04/19 78 18 122/43 98 Room Air 11:20 (69) 03/04/19 97.6 09:00 Exam Exam General: Adequately build 89 year-old female lying in bed in no apparent distress. HEENT: Normocephalic, atraumatic. Eyes: Anicteric sclerae, conjunctivae clear. ENT: Nasal septum midline, oral mucosa is dry. Neck supple, no JVD noticed. Respiratory: Bilaterally diminished breath sounds. No use of accessory muscles of respiration. No adventitious breath sounds. Cardiovascular: S1, S2 heard. Regular rate and rhythm. Abdomen: Soft, nontender, and nondistended. Bowel sounds positive in all 4 quadrants. Genitourinary: Deferred. Extremities: No cyanosis, no clubbing, no edema. Peripheral pulses palpable. Neurologic: Awake and alert. Right hemiparesis. Skin: Normal skin turgor. No skin rashes. Additional Comments Brain CT IMPRESSION: 1. Moderate diffuse atrophy. 2. Microangiopathic ischemic changes. 3. Old left frontoparietal and left basal ganglia infarct. 4. Old infarcts right cerebellum. 5. Vascular calcifications. 6. Mucoperiosteal thickening with partial opacification of the right sphenoid sinus 7. Mild mucosal thickening posteroinferior right maxillary sinus. CXR IMPRESSION: 1. No evidence for active cardiopulmonary disease. 2. Diffusely calcified thoracic aorta. 3. Degenerative changes within the spine. KI MARIE NP Mar 04, 2019 11:53
[2019-03-04 12:00] VITALS: BP 135/72; PULSE 83; RESP 16
[2019-03-04 12:19] VITALS: Ht 152.4 cm; Wt 63.5 kg
[2019-03-04] MEDS: METOPROLOL (XL) 50 MG TAB PO SCH (13:07)
[2019-03-04] MEDS ORDERED: ALBUTEROL 0.083% (NEB) 2.5 MG/3 ML AMP HHN PRN (13:30)
[2019-03-04] MEDS ORDERED: LORAZEPAM 2 MG INJ IV ONE (13:30)
--- NOTE | 2019-03-04 17:52 | CONS ---
DATE OF ADMISSION: 03/04/2019 DATE OF CONSULTATION: 03/04/2019 TYPE OF CONSULTATION: Nephrology. REASON FOR CONSULTATION: CKD, possible acute kidney injury. PROVIDER REQUESTING CONSULT: Cosme Roque NP HISTORY OF PRESENT ILLNESS: This is an 89-year-old female with a past medical history of chronic kid nai disease stage III with unknown baseline creatinine, history of COPD, history of CVA, history of h ypertension, who presents to [facility] Emergency Room by family members because of confusion. The patient currently at her baseline is alert and oriented, but within the last 2 days, the patient was noted to have increased confusion, refusing to eat or drink. The patient as a resul t was brought into the emergency room. Upon arrival, patient had a CT scan of brain which showed no acute findings. Chest x-ray showed no acute findings. The patient has initial urinalysis which was negative. No signs of infection. The patient in the emergency room was given IV hydration and admit kwaku to med/surg for continued evaluation. In terms of patient's renal history, the patient has reported underlying history of CKD. Baseline cr eatinine is unknown. There have been no reports of any hemoptysis, hematemesis or hematochezia. PAST MEDICAL HISTORY: As stated above, history of CKD, hypertension, previous history of COPD. FAMILY HISTORY: No family history of kidney disease. SOCIAL HISTORY: Does not drink, smoke or do drugs. MEDICATIONS: Have been reviewed. REVIEW OF SYSTEMS: A 14-point review of systems was conducted. Pertinent positives stated in HPI, o therwise negative. PHYSICAL EXAMINATION: VITAL SIGNS: Blood pressure is 135/72, respirations 16, pulse 83, temperature 98.0. HEENT: Head is normocephalic. NECK: Supple. HEART: Regular rate. LUNGS: Show diminished breath sounds at the base. ABDOMEN: Soft, nontender to palpation without rebound or guarding. EXTREMITIES: Negative for clubbing, cyanosis. No edema. DERMATOLOGIC: No rashes. MUSCULOSKELETAL: No joint effusion. NEUROLOGIC: No focal deficits. LABORATORY DATA: Has been reviewed. IMAGING STUDIES: Have been reviewed. ASSESSMENT AND PLAN: This is an 89-year-old female who presents with: 1. Nonoliguric acute kidney injury with unknown baseline creatinine. Etiology of acute kidney injur y is secondary to hemodynamics versus progression of chronic kidney disease. The patient's initial u rinalysis is bland, no active sediment. Plan at this point is to check a renal ultrasound to evaluat e renal parenchyma and rule out obstruction. We will check urine electrolytes, calculate a FENa, fra ctional secretion of urine. I agree with fluid challenge. I agree with holding ARBs which may be co ntributing factor to acute kidney injury. We will otherwise continue supportive care, renally dose a ll meds, avoid nephrotoxins. 2. Mild anemia. Monitor hemoglobin and hematocrit levels. 3. Metabolic acidosis, mild. Continue to monitor. 4. Mineral bone disorder. We will check calcium and phosphorus, PTH, vitamin D level. 5. Acute encephalopathy. Etiology is unclear. The patient's CT scan of the brain is negative. MRI is pending. Continue to monitor. Consider neurology evaluation. 6. Hypertension. Continue current blood pressure regimen. Hold ARBs at this time. 7. Previous history of cerebrovascular accident. Continue aspirin and statin therapy. 8. History of chronic obstructive pulmonary disease. Continue to monitor. We will give p.r.nAzul mao as needed. Thank you, Cosme, for this interesting consult. It will be a pleasure to follow the patient with yo u throughout the hospital course. Dictated By: ASHANTI SEYMOUR DO NR/NTS Conf#: [id number] DID#: [id number] CC: MIESHA HERNANDEZ MD; DEANGELO HARRISON L[employer] B[employer]B ASSEMBLER;*End*
[2019-03-04] MEDS: BUDESONIDE (NEB) 0.5MG/2ML AMP INH SCH (19:24)
[2019-03-04] MEDS: ARFORMOTEROL TARTRATE 15MCG/2 ML AMP INH SCH (19:24)
[2019-03-04 20:00] VITALS: BP 119/57; PULSE 74; RESP 18
[2019-03-04] MEDS ORDERED: ATORVASTATIN 10 MG TAB PO SCH (21:00)
[2019-03-04] MEDS: HEPARIN 5,000 UNIT/1 ML VIAL SC SCH (21:27)
[2019-03-04] MEDS ORDERED: OLANZAPINE 5 MG TAB PO ONE (22:30)
[2019-03-04] MEDS ORDERED: VANCOMYCIN IV PER PHARMACY XX SCH (22:30)
[2019-03-04] MEDS ORDERED: VANCOMYCIN HCL 1.25 GM in SOD CHLORIDE 0.9% 250 ML IVPB ONE (23:00)
[2019-03-05 02:00] VITALS: BP 135/60; PULSE 81; RESP 17
[2019-03-05] MEDS: BUDESONIDE (NEB) 0.5MG/2ML AMP INH SCH ×2 (08:38→19:40)
[2019-03-05] MEDS: ARFORMOTEROL TARTRATE 15MCG/2 ML AMP INH SCH ×2 (08:38→19:40)
[2019-03-05 08:43] VITALS: BP 114/68; PULSE 85; RESP 20
[2019-03-05] MEDS: HEPARIN 5,000 UNIT/1 ML VIAL SC SCH ×2 (09:00→20:08)
--- NOTE | 2019-03-05 09:35 | PN ---
DATE: 03/05/2019 SUBJECTIVE: The patient remains confused. The patient had an MRI of the brain yesterday. No eviden ce of acute stroke. Blood cultures came back positive for gram-positive cocci in cultures. No other events noted. OBJECTIVE: VITAL SIGNS: Blood pressure is 114/68, respirations 20, pulse 65, temperature 97.2. HEENT: Head is normocephalic. NECK: Supple. HEART: Regular rate. LUNGS: Show diminished breath sounds at the base. ABDOMEN: Soft, nontender to palpation without rebound or guarding. EXTREMITIES: Negative for clubbing, cyanosis, no edema. DERMATOLOGIC: No rashes. MUSCULOSKELETAL: No joint effusion. NEUROLOGIC: No focal deficits. MEDICATIONS: The patient's medications have been reviewed. LABORATORY DATA: Has been reviewed. IMAGING STUDIES: Have been reviewed. Cultures have been reviewed. ASSESSMENT AND PLAN: 1. Nonoliguric acute kidney injury on top of chronic kidney disease stage III with unknown baseline creatinine. Etiology of acute kidney injury is secondary to hemodynamics. The patient's renal funct ion has remained stable in the last 24 hours. At this point, continue current treatment plan, suppor tive care, renally dose all meds. 2. Hypernatremia. The patient has a free water deficit pf approximately 1 liter. We will start the patient on hypotonic fluid, encourage free water intake. 3. Mild anemia. Monitor hemoglobin and hematocrit levels. 4. Metabolic acidosis, mild. Continue to monitor. 5. Mineral bone disorder, monitor calcium and phosphorus levels. Patient's PTH level is within norm al limits. Vitamin D levels are low, will start the patient on vitamin D supplementation. 6. Acute encephalopathy. Etiology is likely toxic metabolic, possibly due to underlying sepsis. Co ntinue to monitor. CT scan, MRI of brain negative for acute stroke. 7. Sepsis with gram-negative bacteremia. Underlying source unclear. Continue antibiotic therapy. 8. Hypertension. Continue current blood pressure regimen. Hold ARB at this time. 9. History of chronic obstructive pulmonary disease. Continue medical management. Dictated By: ASHANTI SEYMOUR DO NR/NTS Conf#: [id number] DID#: [id number] CC: MIESHA HERNANDEZ MD; DEANGELO HARRISON ESL TUTOR;*End*
--- NOTE | 2019-03-05 09:46 | PN ---
Date/Time of Note Date/Time of Note DATE: 03/05/19 TIME: 09:39 Assessment/Plan VTE Prophylaxis Risk score (from Ns)>0 risk: 7 SCD applied (from Ns): Yes Pharmacological prophylaxis: heparin Pharm contraindication: patient refusal Lines/Catheters IV Catheter Type (from [facility]): Peripheral IV Urinary Cath still in place: No Assessment/Plan Hospital Course SUBJECTIVE: The patient's son at the bedside. As per the patient's son, the patient is still confused although less confused when compared to yesterday. OBJECTIVE: Physical Exam General: Adequately build 89 year-old female lying in bed in no apparent distress. HEENT: Normocephalic, atraumatic. Eyes: Anicteric sclerae, conjunctivae clear. ENT: Nasal septum midline, oral mucosa is dry. Neck supple, no JVD noticed. Respiratory: Bilaterally diminished breath sounds. No use of accessory muscles of respiration. No adventitious breath sounds. Cardiovascular: S1, S2 heard. Regular rate and rhythm. Abdomen: Soft, nontender, and nondistended. Bowel sounds positive in all 4 quadrants. Genitourinary: Deferred. Extremities: No cyanosis, no clubbing, no edema. Peripheral pulses palpable. Neurologic: Awake and alert. Right hemiparesis. Skin: Normal skin turgor. No skin rashes. 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 admitted to inpatient setting for further treatment and evaluation. 1. Acute encephalopathy. Etiology unclear. Brain CT and MRI negative for any acute findings. Neurology and psychiatry consult pending. ST and physical therapy evaluation. 2. Gram positive bacteremia. Patient was started on Vancomycin. ID consult for expert opinion. 3. Acute on chronic kidney disease. Continue IV fluids. Nephrology following. Hold nephrotoxic medications. 3. Hypertension. Continue antihypertensives. Hold ARB. 4. History of stroke. Continue ASA and statins. 5. COPD. No evidence of any exacerbation. Continue LABA. Continue PRN EDELMIRA. 6. Normocytic anemia. Most probably anemia of chronic disease. Monitor H&H closely. 7. Dyslipidemia. Continue statins. 8. Fluids, electrolytes, and nutrition. Pured diet. Aspiration precautions. 9. DVT prophylaxis. SQ heparin (family refusing). 10. Plan. Continue supportive care. Await neurology and psychiatry evaluation. Continue vancomycin. Obtain ID consult. The patient was seen in collaboration with Dr. Chandler. Result Diagram: 03/05/19 0514 03/05/19 0514 Results 24hrs Laboratory Tests Test 03/04/19 13:12 03/04/19 13:55 03/05/19 05:14 Vitamin D 1,25-Dihydroxy 22.0 L Parathyroid Hormone 38.0 Creatine Kinase 42 70 Creatine Kinase Index 1.6 3.2 Creatinine Kinase MB (Mass) 0.69 2.22 Troponin I 0.019 0.037 White Blood Count 11.2 H Red Blood Count 3.87 L Hemoglobin 11.3 L Hematocrit 36.3 L Mean Corpuscular Volume 93.8 Mean Corpuscular Hemoglobin 29.2 Mean Corpuscular Hemoglobin Concent 31.1 L Red Cell Distribution Width 12.9 Platelet Count 378 Mean Platelet Volume 10.2 Immature Granulocytes % 0.800 H Neutrophils % 67.1 Lymphocytes % 21.4 Monocytes % 7.2 Eosinophils % 2.9 Basophils % 0.6 Nucleated Red Blood Cells % 0.0 Immature Granulocytes # 0.090 H Neutrophils # 7.5 Lymphocytes # 2.4 Monocytes # 0.8 Eosinophils # 0.3 Basophils # 0.1 Nucleated Red Blood Cells # 0.0 Sodium Level 146 H Potassium Level 4.4 Chloride Level 113 H Carbon Dioxide Level 22 Anion Gap 11 Blood Urea Nitrogen 33 H Creatinine 1.94 H Est Glomerular Filtrat Rate mL/min Glucose Level 114 Calcium Level 8.8 Phosphorus Level 4.0 Magnesium Level 2.0 Total Bilirubin 0.3 Direct Bilirubin 0.00 Indirect Bilirubin 0.3 Aspartate Amino Transf (AST/SGOT) 23 Alanine Aminotransferase (ALT/SGPT) 8 L Alkaline Phosphatase 104 Total Protein 8.1 Albumin 3.8 Globulin 4.30 H Albumin/Globulin Ratio 0.88 Triglycerides Level 352 H Cholesterol Level 233 H LDL Cholesterol, Calculated 133 HDL Cholesterol 30 L Cholesterol/HDL Ratio 7.7 Exam/Review of Systems Exam Vitals Vital Signs Date Temp Pulse Resp B/P (MAP) Pulse Ox O2 O2 Flow FiO2 Time Delivery Rate 03/05/19 97.2 85 20 114/68 99 08:43 (83) 03/05/19 21 08:39 03/04/19 Room Air 12:00 Intake and Output 03/04/19 03/04/19 03/05/19 1515:00 23:00 07:00 IntakeIntake Total 1000 ml 250 ml BalanceBalance 1000 ml 250 ml Results Results 24hrs Laboratory Tests Test 03/04/19 13:12 03/04/19 13:55 03/05/19 05:14 Vitamin D 1,25-Dihydroxy 22.0 L Parathyroid Hormone 38.0 Creatine Kinase 42 70 Creatine Kinase Index 1.6 3.2 Creatinine Kinase MB (Mass) 0.69 2.22 Troponin I 0.019 0.037 White Blood Count 11.2 H Red Blood Count 3.87 L Hemoglobin 11.3 L Hematocrit 36.3 L Mean Corpuscular Volume 93.8 Mean Corpuscular Hemoglobin 29.2 Mean Corpuscular Hemoglobin Concent 31.1 L Red Cell Distribution Width 12.9 Platelet Count 378 Mean Platelet Volume 10.2 Immature Granulocytes % 0.800 H Neutrophils % 67.1 Lymphocytes % 21.4 Monocytes % 7.2 Eosinophils % 2.9 Basophils % 0.6 Nucleated Red Blood Cells % 0.0 Immature Granulocytes # 0.090 H Neutrophils # 7.5 Lymphocytes # 2.4 Monocytes # 0.8 Eosinophils # 0.3 Basophils # 0.1 Nucleated Red Blood Cells # 0.0 Sodium Level 146 H Potassium Level 4.4 Chloride Level 113 H Carbon Dioxide Level 22 Anion Gap 11 Blood Urea Nitrogen 33 H Creatinine 1.94 H Est Glomerular Filtrat Rate mL/min Glucose Level 114 Calcium Level 8.8 Phosphorus Level 4.0 Magnesium Level 2.0 Total Bilirubin 0.3 Direct Bilirubin 0.00 Indirect Bilirubin 0.3 Aspartate Amino Transf (AST/SGOT) 23 Alanine Aminotransferase (ALT/SGPT) 8 L Alkaline Phosphatase 104 Total Protein 8.1 Albumin 3.8 Globulin 4.30 H Albumin/Globulin Ratio 0.88 Triglycerides Level 352 H Cholesterol Level 233 H LDL Cholesterol, Calculated 133 HDL Cholesterol 30 L Cholesterol/HDL Ratio 7.7 Medications Medication Current Medications IV Flush (NS 3 ml) 3 ml PER PROTOCOL IV ; Start 03/04/19 at 11:00 Ondansetron HCl (Zofran Inj) 4 mg Q6H PRN IV NAUSEA/VOMITING; Start 03/04/19 at 11:00 Acetaminophen (Tylenol Tab) 650 mg Q6H PRN PO .PAIN 1-3 OR TEMP; Start 03/04/19 at 11:00 Atorvastatin Calcium (Lipitor) 10 mg QHS PO Last administered on 03/04/19at 21:28; Admin Dose 10 MG; Start 03/04/19 at 21:00 Arformoterol Tartrate (Brovana (Neb)) 2 ml BID RESP THERAPY INH Last administered on 03/05/19at 08:38; Admin Dose 2 ML; Start 03/04/19 at 20:00 Metoprolol Succinate (Toprol Xl) 50 mg DAILY PO Last administered on 03/04/19at 13:07; Admin Dose 50 MG; Start 03/05/19 at 09:00 Albuterol (Proventil 0.083% (Neb)) 2.5 mg Q2H RESP THERAPY PRN HHN SHORTNESS OF BREATH; Start 03/04/19 at 13:30 Heparin Sodium (Porcine) (Heparin (5000 Units/1ml)) 5,000 unit BID SC Last administered on 03/04/19at 21:27; Admin Dose 5,000 UNIT; Start 03/04/19 at 21:00 Aspirin (Halfprin) 81 mg DAILY PO ; Start 03/05/19 at 09:00 Budesonide (Pulmicort (Neb)) 0.5 mg BID RESP THERAPY INH Last administered on 03/05/19at 08:38; Admin Dose 0.5 MG; Start 03/04/19 at 20:00 Vancomycin HCl (Vanco Iv Per Pharmacy) VANCOMYCIN PER PHARMACY PER PROTOCOL XX ; Start 03/04/19 at 22:30 Vancomycin HCl 250 ml @ 125 mls/hr Q48H IVPB ; Start 03/06/19 at 23:00 Dextrose 1,000 ml @ 50 mls/hr Q20H IV ; Start 03/05/19 at 09:30 Cholecalciferol (Vitamin D) 1,000 unit DAILY PO ; Start 03/05/19 at 09:30 KI MARIE NP Mar 05, 2019 09:46
[2019-03-05] MEDS: CHOLECALCIFEROL 1,000 UNIT TAB PO SCH (10:01)
[2019-03-05] MEDS: FISH OIL 1,000 MG CAP PO SCH ×2 (10:02→20:13)
[2019-03-05] MEDS: DEXTROSE 5% 1,000 ML IV SCH (10:02)
[2019-03-05] MEDS: ASPIRIN (EC) 81 MG TAB PO SCH (10:03)
[2019-03-05 15:13] VITALS: BP 111/50; PULSE 70; RESP 24
--- NOTE | 2019-03-05 16:25 | CONSI ---
Assessment/Plan Assessment/Plan Assessment/Plan (Recall) 89 F who presents for evaluation of ams. BCx + NIKI + The clinical picture is consistent w/ an acute toxic-metabolic encephalopathy... An underlying cognitive impairment is likely... Encephalitis is unlikely.. MRI brain is reassuringly negative for acute intracranial pathology P: OK to defer CSF evaluation for now Continued medical management per primary [place] as necessary Limit sedating medications where possible PT/OT/ST as indicated Will follow Consultation Date/Type/Reason Admit Date/Time Mar 04, 2019 at 05:47 Type of Consult Neurology Reason for Consultation ams Requesting Provider: KI MARIE NP Date/Time of Note DATE: 03/05/19 TIME: 16:21 Hx of Present Illness The patient is unable to contribute a Hx.. It is elsewhere noted: This is an 89-year-old female with comorbidities including hypertension, COPD, stroke with chronic bedridden status, and CKD. The patient was brought to the emergency room by family members because of confusion. The patient was also refusing to eat or drink. There was no reported vomiting or fevers. The patient is bedridden since her stroke and she is being taken care of by her family members. The patient is not primarily Swedish speaking and therefore, the details were obtained by reviewing the chart and by talking to the staff. In the emergency room, the patient was noticed to have a BUN and creatinine 42 and 2 respectively. The patient's brain CT scan was negative for any acute findings. The patient's chest x-ray was negative for any acute findings. The patient's urinalysis was negative for any evidence of any infection. limited by ams Objective Exam Vitals Vital Signs Date Temp Pulse Resp B/P (MAP) Pulse Ox O2 O2 Flow FiO2 Time Delivery Rate 03/05/19 98.5 70 24 111/50 99 15:13 (70) 03/05/19 21 08:39 03/04/19 Room Air 12:00 Intake and Output 03/04/19 03/04/19 03/05/19 1515:00 23:00 07:00 IntakeIntake Total 1000 ml 250 ml BalanceBalance 1000 ml 250 ml Results Result Diagram: 03/05/19 0514 03/05/19 0514 Results 24hrs Laboratory Tests Test 03/05/19 05:14 03/05/19 12:30 White Blood Count 11.2 H Red Blood Count 3.87 L Hemoglobin 11.3 L Hematocrit 36.3 L Mean Corpuscular Volume 93.8 Mean Corpuscular Hemoglobin 29.2 Mean Corpuscular Hemoglobin Concent 31.1 L Red Cell Distribution Width 12.9 Platelet Count 378 Mean Platelet Volume 10.2 Immature Granulocytes % 0.800 H Neutrophils % 67.1 Lymphocytes % 21.4 Monocytes % 7.2 Eosinophils % 2.9 Basophils % 0.6 Nucleated Red Blood Cells % 0.0 Immature Granulocytes # 0.090 H Neutrophils # 7.5 Lymphocytes # 2.4 Monocytes # 0.8 Eosinophils # 0.3 Basophils # 0.1 Nucleated Red Blood Cells # 0.0 Sodium Level 146 H Potassium Level 4.4 Chloride Level 113 H Carbon Dioxide Level 22 Anion Gap 11 Blood Urea Nitrogen 33 H Creatinine 1.94 H Est Glomerular Filtrat Rate mL/min Glucose Level 114 Calcium Level 8.8 Phosphorus Level 4.0 Magnesium Level 2.0 Total Bilirubin 0.3 Direct Bilirubin 0.00 Indirect Bilirubin 0.3 Aspartate Amino Transf (AST/SGOT) 23 Alanine Aminotransferase (ALT/SGPT) 8 L Alkaline Phosphatase 104 Creatine Kinase 70 Creatine Kinase Index 3.2 Creatinine Kinase MB (Mass) 2.22 Troponin I 0.037 Total Protein 8.1 Albumin 3.8 Globulin 4.30 H Albumin/Globulin Ratio 0.88 Triglycerides Level 352 H Cholesterol Level 233 H LDL Cholesterol, Calculated 133 HDL Cholesterol 30 L Cholesterol/HDL Ratio 7.7 Urine Random Creatinine 30.97 Urine Random Sodium 118 H Urine Total Protein 92.0 H Past Medical History Home Meds Active Scripts Metoprolol Succinate* (Toprol XL*) 50 Mg Tab.er.24h, 50 MG PO DAILY for 30 Days, #30 TAB 3 Refills Prov:RAKAN REHMAN MD 02/10/19 Albuterol Sulfate* (Ventolin HFA*) 18 Gm Hfa.aer.ad, 2 PUFF INHALATION Q4H PRN for SHORTNESS OF BREATH, #1 INHALER 5 Refills Prov:RAKAN REHMAN MD 02/10/19 Budesonide-Formoterol Fumarate* (Symbicort*) 160-4.5 Hfa.aer.ad, 2 PUFF INHALATION BID, #1 EACH 4 Refills Prov:RAKAN REHMAN MD 02/10/19 Reported Medications Atorvastatin Calcium (Atorvastatin Calcium) 10 Mg Tablet, 10 MG PO QHS, #30 TAB 02/06/19 Losartan Potassium* (Losartan Potassium*) 100 Mg Tablet, 100 MG PO DAILY, TAB 02/06/19 Discontinued Scripts Prednisone* (Prednisone*) 20 Mg Tab, 40 MG PO DAILY for 4 Days, #4 TAB Prov:RAKAN REHMAN MD 02/10/19 Medications Current Medications IV Flush (NS 3 ml) 3 ml PER PROTOCOL IV ; Start 03/04/19 at 11:00 Ondansetron HCl (Zofran Inj) 4 mg Q6H PRN IV NAUSEA/VOMITING; Start 03/04/19 at 11:00 Acetaminophen (Tylenol Tab) 650 mg Q6H PRN PO .PAIN 1-3 OR TEMP; Start 03/04/19 at 11:00 Arformoterol Tartrate (Brovana (Neb)) 2 ml BID RESP THERAPY INH Last administered on 03/05/19at 08:38; Admin Dose 2 ML; Start 03/04/19 at 20:00 Metoprolol Succinate (Toprol Xl) 50 mg DAILY PO Last administered on 03/04/19at 13:07; Admin Dose 50 MG; Start 03/05/19 at 09:00 Albuterol (Proventil 0.083% (Neb)) 2.5 mg Q2H RESP THERAPY PRN HHN SHORTNESS OF BREATH; Start 03/04/19 at 13:30 Heparin Sodium (Porcine) (Heparin (5000 Units/1ml)) 5,000 unit BID SC Last administered on 03/04/19at 21:27; Admin Dose 5,000 UNIT; Start 03/04/19 at 21:00 Aspirin (Halfprin) 81 mg DAILY PO Last administered on 03/05/19at 10:03; Admin Dose 81 MG; Start 03/05/19 at 09:00 Budesonide (Pulmicort (Neb)) 0.5 mg BID RESP THERAPY INH Last administered on 03/05/19at 08:38; Admin Dose 0.5 MG; Start 03/04/19 at 20:00 Vancomycin HCl (Vanco Iv Per Pharmacy) VANCOMYCIN PER PHARMACY PER PROTOCOL XX ; Start 03/04/19 at 22:30 Vancomycin HCl 250 ml @ 125 mls/hr Q48H IVPB ; Start 03/06/19 at 23:00 Dextrose 1,000 ml @ 50 mls/hr Q20H IV Last administered on 03/05/19at 10:02; Admin Dose 50 MLS/HR; Start 03/05/19 at 09:30 Cholecalciferol (Vitamin D) 1,000 unit DAILY PO Last administered on 03/05/19at 10:01; Admin Dose 1,000 UNIT; Start 03/05/19 at 09:30 Atorvastatin Calcium (Lipitor) 40 mg HS PO ; Start 03/05/19 at 21:00 Fish Oil (Fish Oil) 2,000 mg BID PO Last administered on 03/05/19at 10:02; Admin Dose 2,000 MG; Start 03/05/19 at 10:00 Allergies: Coded Allergies: No Known Allergy (Unverified , 03/04/19) Social History Alcohol Use: none Smoking Status: Never smoker Drug Use: none DANA TOMLINSON 25, 2019 16:25
--- NOTE | 2019-03-05 17:55 | CONS ---
DATE OF ADMISSION: 03/04/2019 DATE OF CONSULTATION: 03/05/2019 TYPE OF CONSULTATION: Infectious disease. REASON FOR CONSULTATION: Antibiotic management. HISTORY OF PRESENT ILLNESS: Brent Macdonald is an 89-year-old female who comes in with altered level of cons ciousness more than usual. The patient was getting more confused. She does not know what her son brandyn ruby tried to feed her, but refused to drink anything. She has had urinary tract infections in the past . PAST MEDICAL HISTORY: Include: 1. COPD. 2. Hypertension. FAMILY HISTORY: Noncontributory. SOCIAL HISTORY: She does not smoke, drink or abuse drugs. ALLERGIES: NONE TO PENICILLIN, SULFA OR FOODS. MEDICATIONS: Per chart. REVIEW OF SYSTEMS: As per HPI. PHYSICAL EXAMINATION: GENERAL: The patient is a well-developed, well-nourished female who is alert, responsive, in n o acute distress. VITAL SIGNS: Stable. She is afebrile. SKIN: Without generalized rash. HEENT: Within normal limits. NECK: Supple. LYMPH NODES: None palpable. CHEST: Decreased breath sounds at the bases. HEART: Without murmur or gallop. ABDOMEN: Soft, nontender without organosplenomegaly or masses. EXTREMITIES: Without cyanosis, clubbing or edema. RECTAL AND GENITAL: Deferred. NEUROLOGICAL: She is oriented x1. She has right-sided paralysis from an old stroke. Sensations are intact. HOSPITAL COURSE: Her white count is 10.9, H and H of 11.2 and 35.5, platelet count 418,000 with 61% neutrophils. BUN and creatinine is 42/2.04. Urinalysis is negative. CT scan shows loss of volume w ith evidence of old left parietal stroke. I do not see any acute bleed but official reading is pendi ng. Chest x-ray shows no evidence for acute cardiopulmonary disease, diffuse calcified thoracic aort a, degenerative changes within the spine. CT scan of the brain: Moderate diffuse atrophy, microangi opathic ischemic changes, old left frontoparietal and left basal ganglia infarct, old infarcts in rig ht cerebellum, vascular calcifications, mucoperiosteal thickening with partial opacification of the r ight sphenoid sinus, mild mucosal thickening in inferior right maxillary sinus. MRI of the brain juanita ws patchy paranasal sinus disease, bilateral mastoid air cell disease, old cerebellar infarcts greate r on the right. IMPRESSION AND PLAN: As noted, she has multiple comorbidities with hypertension, chronic obstructive pulmonary disease, right-sided hemiparesis, bedridden status, chronic renal disease with a BUN and c reatinine 42/2.0. She has acute encephalopathy. Her blood cultures, however, show gram-positive monica ci in clusters, so she has a source for bacteremia. Her urine is negative for ketones, for nitrites and for leukocyte esterase. She continues to be confused. The patient was started on vancomycin. S he may need a 2D echocardiogram to rule out the possibility of endocarditis. Echocardiogram was orde red. We will continue her on current therapy. I will dictate my findings to the hospitalist and to Dr. Ignacio. Dictated By: SHEILA MARIE MD, JD/NTS Conf#: [id number] DID#: [id number] CC: MIESHA HERNANDEZ MD;*End*
[2019-03-05 20:00] VITALS: BP 119/51; PULSE 75; RESP 18
[2019-03-05] MEDS: ATORVASTATIN 40 MG TAB PO SCH (20:13)
[2019-03-06 02:00] VITALS: BP 131/61; PULSE 79; RESP 18
[2019-03-06] MEDS: DEXTROSE 5% 1,000 ML IV SCH (05:40)
--- NOTE | 2019-03-06 08:25 | RADRPT ---
Echocardiogram Report Patient Name: CRISPINHLAPatient ID: [id number] : 1930 (89y 2m)Study Date: 03/05/2019 11:18:56 AM Gender: FAccession #: [id number] Tech: Francisco Hemphill [facility] Location: 2240- Ref.Physician: KI MARIE Height(Cm): BSA: Weight(Kg): Quality: AdequateOrder Physician: KI MARIE Account #: Procedures: Echocardiographic Report: Transthoracic echocardiogram with complete 2D, M-Mode, and doppler examination. Indications: Evaluate Left Ventricular function. Measurements: 2D/M Mode Doppler Measurement Value Normal Range Measurement Value Normal Range LVIDd 2D 2.7 [ 3.8 - 5.2 ] cm AV Peak Michael 1.0 [ 100.0 - 170.0 ] cm/sec LVIDs 2D 2.0 [ 2.2 - 3.5 ] cm AV Peak PG 4.0 [ 2.0 - 9.0 ] mmHg LVPWd 2D 0.9 [ 0.6 - 0.9 ] cm LVOT Peak Michael 0.8 [ 70.0 - 110.0 ] cm/sec IVSd 2D 1.5 [ 0.6 - 0.9 ] cm LVOT Peak PG 3.0 [ 2.0 - 6.0 ] mmHg IVS/LVPW 2D 1.6 ratio MV E Peak Michael 0.8 [ 60.0 - 130.0 ] cm/sec AoR Diam 2D 2.6 [ 2.3 - 3.1 ] cm MV A Peak Michael 1.4 [ 100.0 - 120.0 ] cm/sec LA/Ao 2D 1 ratio MV E/A 0.6 [ 0.8 - 1.5 ] ratio LA Dimen 2D 2.9 [ 2.7 - 3.8 ] cm MV Decel Time 169 [ 104 - 258 ] msec Lat E` Michael 0.0 [ 10.0 - 15.0 ] cm/sec Med E` Michael 0.0 cm/sec MV E/A 0.6 [ 0.8 - 1.5 ] ratio RA Pressure 10.0 mmHg Findings: Left Ventricle: Normal left ventricular systolic function. Normal left ventricular cavity size. Moderate asymmetric septal hypertrophy. Ejection fraction is visually estimated at 65 %. Tissue Doppler/Mitral Doppler indices are consistent with impaired relaxation (Stage I diastolic dysfunction). Right Ventricle: Normal right ventricular size. Normal right ventricular systolic function. Left Atrium: The left atrium is normal in size. Right Atrium: The right atrium is normal in size. Mitral Valve: Mild mitral leaflet calcification. Mild mitral annular calcification. Trace mitral regurgitation. Aortic Valve: Aortic cusps appear mildly calcified. Mild to moderate aortic valve regurgitation. Tricuspid Valve: Normal appearance of the tricuspid valve. Unable to obtain RVSP due to minimal presence of tricuspid regurgitation. Pericardium: Normal pericardium with no significant pericardial effusion. Aorta: Normal aortic root. IVC: Normal size and normal respiratory collapse consistent with normal right atrial pressure. Conclusions: Normal left ventricular systolic function. Normal left ventricular cavity size. Moderate asymmetric septal hypertrophy. Ejection fraction is visually estimated at 65 %. Tissue Doppler/Mitral Doppler indices are consistent with impaired relaxation (Stage I diastolic dysfunction). The left atrium is normal in size. Mild mitral leaflet calcification. Mild mitral annular calcification. Trace mitral regurgitation. Aortic cusps appear mildly calcified. Mild to moderate aortic valve regurgitation. Normal appearance of the tricuspid valve. Unable to obtain RVSP due to minimal presence of tricuspid regurgitation. Normal size and normal respiratory collapse consistent with normal right atrial pressure. Electronically Signed By: Dexter Naik 2019-03-06 08:24:55 PDT
[2019-03-06] MEDS: ARFORMOTEROL TARTRATE 15MCG/2 ML AMP INH SCH ×2 (08:32→20:00)
[2019-03-06] MEDS: BUDESONIDE (NEB) 0.5MG/2ML AMP INH SCH ×2 (08:32→20:12)
--- NOTE | 2019-03-06 08:51 | PN ---
DATE: 03/06/2019 SUBJECTIVE: The patient is stable, no events overnight. OBJECTIVE: VITAL SIGNS: Blood pressure is 131/61, respiration 18, pulse 79, temperature 97.2. HEENT: Head is normocephalic. NECK: Supple. HEART: Regular rate. LUNGS: Show diminished breath sounds at the base. ABDOMEN: Soft, nontender to palpation without rebound or guarding. EXTREMITIES: Negative for clubbing, cyanosis, no edema. DERMATOLOGIC: No rashes. MUSCULOSKELETAL: No joint effusion. NEUROLOGIC: No change in exam. MEDICATIONS: The patient's medications have been reviewed. LABORATORY DATA: Has been reviewed. IMAGING STUDIES: Have been reviewed. ASSESSMENT AND PLAN: 1. Nonoliguric acute kidney injury on top of chronic kidney disease stage III. Etiology of NIKI is s econdary to hemodynamics. Renal function appears to have stabilized. Continue current treatment sunil n and supportive care and renally dose all medications. 2. Hypernatremia. The patient's sodium levels are improving. Continue D5 water. Continue to encou rage free water intake. 3. Anemia. Monitor hemoglobin and hematocrit levels. 4. Mild metabolic acidosis. Continue to monitor. 5. Mineral bone disorder. Continue to monitor calcium and phosphorus levels. Continue vitamin D swann pplementation. 6. Acute encephalopathy, etiology is toxic metabolic. Continue to monitor. Follow up with neurolog y. 7. Sepsis with gram-negative bacteremia. Continue current antibiotic regimen. 8. Hypertension. Continue current blood pressure regimen. 9. History of chronic obstructive pulmonary disease. Continue medical management. Dictated By: ASHANTI SEYMOUR DO NR/NTS Conf#: [id number] DID#: [id number] CC: MIESHA HERNANDEZ MD; SHEILA MARIE MD;*EndCC*
[2019-03-06] MEDS: CHOLECALCIFEROL 1,000 UNIT TAB PO SCH (08:55)
[2019-03-06] MEDS: METOPROLOL (XL) 50 MG TAB PO SCH (08:55)
[2019-03-06] MEDS: ASPIRIN (EC) 81 MG TAB PO SCH (08:55)
[2019-03-06] MEDS: HEPARIN 5,000 UNIT/1 ML VIAL SC SCH ×2 (08:56→20:59)
[2019-03-06] MEDS: FISH OIL 1,000 MG CAP PO SCH ×2 (08:56→21:15)
[2019-03-06 09:11] VITALS: BP 173/66; PULSE 69; RESP 24
--- NOTE | 2019-03-06 09:43 | PN ---
Date/Time of Note Date/Time of Note DATE: 03/06/19 TIME: 09:42 Assessment/Plan VTE Prophylaxis Risk score (from Nsg)>0 risk: 7 SCD applied (from Ns): Yes Pharmacological prophylaxis: heparin (Family refusing) Lines/Catheters IV Catheter Type (from [facility]): Peripheral IV Urinary Cath still in place: No Assessment/Plan Hospital Course SUBJECTIVE: Patient more confused today as per the patient's son. OBJECTIVE: Physical Exam General: Adequately build 89 year-old female lying in bed in no apparent distress. HEENT: Normocephalic, atraumatic. Eyes: Anicteric sclerae, conjunctivae clear. ENT: Nasal septum midline, oral mucosa is dry. Neck supple, no JVD noticed. Respiratory: Bilaterally diminished breath sounds. No use of accessory muscles of respiration. No adventitious breath sounds. Cardiovascular: S1, S2 heard. Regular rate and rhythm. Abdomen: Soft, nontender, and nondistended. Bowel sounds positive in all 4 quadrants. Genitourinary: Deferred. Extremities: No cyanosis, no clubbing, no edema. Peripheral pulses palpable. Neurologic: Awake and alert. Right hemiparesis. Skin: Normal skin turgor. No skin rashes. 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 admitted to inpatient setting for further treatment and evaluation. 1. Acute encephalopathy. Etiology unclear. Brain CT and MRI negative for any acute findings. Neurology following. ST and physical therapy evaluation. 2. Gram positive bacteremia. Patient was started on Vancomycin. ID consult for expert opinion. 3. Acute on chronic kidney disease. Continue IV fluids. Nephrology following. Hold nephrotoxic medications. 3. Hypertension. Continue antihypertensives. Hold ARB. 4. History of stroke. Continue ASA and statins. 5. COPD. No evidence of any exacerbation. Continue LABA. Continue PRN EDELMIRA. 6. Normocytic anemia. Most probably anemia of chronic disease. Monitor H&H closely. 7. Dyslipidemia. Continue statins. 8. Fluids, electrolytes, and nutrition. Pured diet. Aspiration precautions. 9. DVT prophylaxis. SQ heparin (family refusing). 10. Plan. Continue supportive care. Await neurology and psychiatry evaluation. Continue vancomycin. Await clinical improvement before discharging the patient home. The patient was seen in collaboration with Dr. Chandler. Result Diagram: 03/06/1952603/06/1927 Results 24hrs Laboratory Tests Test 03/05/19 12:30 03/06/19 05:27 Urine Random Creatinine 30.97 Urine Random Sodium 118 H Urine Total Protein 92.0 H White Blood Count 10.9 H Red Blood Count 3.80 L Hemoglobin 10.9 L Hematocrit 34.7 L Mean Corpuscular Volume 91.3 Mean Corpuscular Hemoglobin 28.7 L Mean Corpuscular Hemoglobin Concent 31.4 L Red Cell Distribution Width 13.0 Platelet Count 319 Mean Platelet Volume 10.4 Immature Granulocytes % 0.900 H Neutrophils % 54.8 Lymphocytes % 28.2 Monocytes % 11.8 H Eosinophils % 3.5 Basophils % 0.8 Nucleated Red Blood Cells % 0.0 Immature Granulocytes # 0.100 H Neutrophils # 6.0 Lymphocytes # 3.1 H Monocytes # 1.3 H Eosinophils # 0.4 Basophils # 0.1 Nucleated Red Blood Cells # 0.0 Sodium Level 143 Potassium Level 4.7 Chloride Level 113 H Carbon Dioxide Level 19 L Anion Gap 11 Blood Urea Nitrogen 32 H Creatinine 1.97 H Est Glomerular Filtrat Rate mL/min Glucose Level 101 Calcium Level 8.4 Phosphorus Level 4.3 Magnesium Level 2.0 Exam/Review of Systems Exam Vitals Vital Signs Date Temp Pulse Resp B/P (MAP) Pulse Ox O2 O2 Flow FiO2 Time Delivery Rate 03/06/19 69 24 173/66 100 09:11 (101) 03/06/19 21 08:20 03/06/19 97.2 02:00 03/04/19 Room Air 12:00 Intake and Output 03/05/19 03/05/19 03/06/19 1515:00 23:00 07:00 IntakeIntake Total 650 ml 640 ml 600 ml BalanceBalance 650 ml 640 ml 600 ml Results Results 24hrs Laboratory Tests Test 03/05/19 12:30 03/06/19 05:27 Urine Random Creatinine 30.97 Urine Random Sodium 118 H Urine Total Protein 92.0 H White Blood Count 10.9 H Red Blood Count 3.80 L Hemoglobin 10.9 L Hematocrit 34.7 L Mean Corpuscular Volume 91.3 Mean Corpuscular Hemoglobin 28.7 L Mean Corpuscular Hemoglobin Concent 31.4 L Red Cell Distribution Width 13.0 Platelet Count 319 Mean Platelet Volume 10.4 Immature Granulocytes % 0.900 H Neutrophils % 54.8 Lymphocytes % 28.2 Monocytes % 11.8 H Eosinophils % 3.5 Basophils % 0.8 Nucleated Red Blood Cells % 0.0 Immature Granulocytes # 0.100 H Neutrophils # 6.0 Lymphocytes # 3.1 H Monocytes # 1.3 H Eosinophils # 0.4 Basophils # 0.1 Nucleated Red Blood Cells # 0.0 Sodium Level 143 Potassium Level 4.7 Chloride Level 113 H Carbon Dioxide Level 19 L Anion Gap 11 Blood Urea Nitrogen 32 H Creatinine 1.97 H Est Glomerular Filtrat Rate mL/min Glucose Level 101 Calcium Level 8.4 Phosphorus Level 4.3 Magnesium Level 2.0 Medications Medication Current Medications IV Flush (NS 3 ml) 3 ml PER PROTOCOL IV ; Start 03/04/19 at 11:00 Ondansetron HCl (Zofran Inj) 4 mg Q6H PRN IV NAUSEA/VOMITING; Start 03/04/19 at 11:00 Acetaminophen (Tylenol Tab) 650 mg Q6H PRN PO .PAIN 1-3 OR TEMP; Start 03/04/19 at 11:00 Arformoterol Tartrate (Brovana (Neb)) 2 ml BID RESP THERAPY INH Last administered on 03/06/19at 08:32; Admin Dose 2 ML; Start 03/04/19 at 20:00 Metoprolol Succinate (Toprol Xl) 50 mg DAILY PO Last administered on 03/06/19at 08:55; Admin Dose 50 MG; Start 03/05/19 at 09:00 Albuterol (Proventil 0.083% (Neb)) 2.5 mg Q2H RESP THERAPY PRN HHN SHORTNESS OF BREATH; Start 03/04/19 at 13:30 Heparin Sodium (Porcine) (Heparin (5000 Units/1ml)) 5,000 unit BID SC Last administered on 03/04/19at 21:27; Admin Dose 5,000 UNIT; Start 03/04/19 at 21:00 Aspirin (Halfprin) 81 mg DAILY PO Last administered on 03/06/19at 08:55; Admin Dose 81 MG; Start 03/05/19 at 09:00 Budesonide (Pulmicort (Neb)) 0.5 mg BID RESP THERAPY INH Last administered on 03/06/19at 08:32; Admin Dose 0.5 MG; Start 03/04/19 at 20:00 Vancomycin HCl (Vanco Iv Per Pharmacy) VANCOMYCIN PER PHARMACY PER PROTOCOL XX ; Start 03/04/19 at 22:30 Vancomycin HCl 250 ml @ 125 mls/hr Q48H IVPB ; Start 03/06/19 at 23:00 Dextrose 1,000 ml @ 50 mls/hr Q20H IV Last administered on 03/06/19at 05:40; Admin Dose 50 MLS/HR; Start 03/05/19 at 09:30 Cholecalciferol (Vitamin D) 1,000 unit DAILY PO Last administered on 03/06/19at 08:55; Admin Dose 1,000 UNIT; Start 03/05/19 at 09:30 Atorvastatin Calcium (Lipitor) 40 mg HS PO Last administered on 03/05/19at 20:13; Admin Dose 40 MG; Start 03/05/19 at 21:00 Fish Oil (Fish Oil) 2,000 mg BID PO Last administered on 03/06/19at 08:56; Admin Dose 2,000 MG; Start 03/05/19 at 10:00 KI MARIE NP Mar 06, 2019 09:43
[2019-03-06] MEDS ORDERED: HALOPERIDOL 5 MG INJ IM ONE (12:00)
[2019-03-06 14:00] VITALS: BP 96/54; PULSE 76; RESP 16
--- NOTE | 2019-03-06 16:03 | CONS ---
Assessment/Plan Assessment/Plan Hospital Course (Demo Recall) Patient is awake noncommunicative in no distress. No fevers overnight. WBC 10.9 no shift no bands. BUN 32 creatinine 1.97. Microbiology: Urine culture negative blood culture grew coag negative staph suspicious Antimicrobials: Vancomycin Physical examination: Chronically ill-appearing elderly woman who is in no distress. Head atraumatic normocephalic sclera nonicteric vehicle mucosa dry neck is supple chest rise symmetrical breath sounds diminished bases heart S1-S2 abdomen soft bowel sounds present extremities without cyanosis Assessment: 1. Staph bacteremia likely contaminant 2. Acute sinusitis and bilateral mastoiditis 3. Acute encephalopathy 4. Hypertension 5. History of CVA Plan: Clinically stable, change antibiotics to Unasyn Consultation Date/Type/Reason Admit Date/Time Mar 04, 2019 at 05:47 Initial Consult Date Type of Consult id Requesting Provider: KI MARIE NP Date/Time of Note DATE: 03/06/19 TIME: 16:03 Exam/Review of Systems Exam Vitals Vital Signs Date Temp Pulse Resp B/P (MAP) Pulse Ox O2 O2 Flow FiO2 Time Delivery Rate 03/06/19 97.5 69 24 173/66 100 09:11 (101) 03/06/19 21 08:20 03/04/19 Room Air 12:00 Intake and Output 03/05/19 03/05/19 03/06/19 1515:00 23:00 07:00 IntakeIntake Total 650 ml 640 ml 600 ml BalanceBalance 650 ml 640 ml 600 ml Results Result Diagram: 03/06/19 0527 03/06/19 0527 Results 24hrs Laboratory Tests Test 03/06/19 05:27 White Blood Count 10.9 H Red Blood Count 3.80 L Hemoglobin 10.9 L Hematocrit 34.7 L Mean Corpuscular Volume 91.3 Mean Corpuscular Hemoglobin 28.7 L Mean Corpuscular Hemoglobin Concent 31.4 L Red Cell Distribution Width 13.0 Platelet Count 319 Mean Platelet Volume 10.4 Immature Granulocytes % 0.900 H Neutrophils % 54.8 Lymphocytes % 28.2 Monocytes % 11.8 H Eosinophils % 3.5 Basophils % 0.8 Nucleated Red Blood Cells % 0.0 Immature Granulocytes # 0.100 H Neutrophils # 6.0 Lymphocytes # 3.1 H Monocytes # 1.3 H Eosinophils # 0.4 Basophils # 0.1 Nucleated Red Blood Cells # 0.0 Sodium Level 143 Potassium Level 4.7 Chloride Level 113 H Carbon Dioxide Level 19 L Anion Gap 11 Blood Urea Nitrogen 32 H Creatinine 1.97 H Est Glomerular Filtrat Rate mL/min Glucose Level 101 Calcium Level 8.4 Phosphorus Level 4.3 Magnesium Level 2.0 Medications Medication Current Medications IV Flush (NS 3 ml) 3 ml PER PROTOCOL IV ; Start 03/04/19 at 11:00 Ondansetron HCl (Zofran Inj) 4 mg Q6H PRN IV NAUSEA/VOMITING; Start 03/04/19 at 11:00 Acetaminophen (Tylenol Tab) 650 mg Q6H PRN PO .PAIN 1-3 OR TEMP; Start 03/04/19 at 11:00 Arformoterol Tartrate (Brovana (Neb)) 2 ml BID RESP THERAPY INH Last administered on 03/06/19 08:32; Admin Dose 2 ML; Start 03/04/19 at 20:00 Metoprolol Succinate (Toprol Xl) 50 mg DAILY PO Last administered on 03/06/19at 08:55; Admin Dose 50 MG; Start 03/05/19 at 09:00 Albuterol (Proventil 0.083% (Neb)) 2.5 mg Q2H RESP THERAPY PRN HHN SHORTNESS OF BREATH; Start 03/04/19 at 13:30 Heparin Sodium (Porcine) (Heparin (5000 Units/1ml)) 5,000 unit BID SC Last administered on 03/04/19at 21:27; Admin Dose 5,000 UNIT; Start 03/04/19 at 21:00 Aspirin (Halfprin) 81 mg DAILY PO Last administered on 03/06/19 08:55; Admin Dose 81 MG; Start 03/05/19 at 09:00 Budesonide (Pulmicort (Neb)) 0.5 mg BID RESP THERAPY INH Last administered on 03/06/19 08:32; Admin Dose 0.5 MG; Start 03/04/19 at 20:00 Vancomycin HCl (Vanco Iv Per Pharmacy) VANCOMYCIN PER PHARMACY PER PROTOCOL XX ; Start 03/04/19 at 22:30 Vancomycin HCl 250 ml @ 125 mls/hr Q48H IVPB ; Start 03/06/19 at 23:00 Dextrose 1,000 ml @ 50 mls/hr Q20H IV Last administered on 03/06/19 05:40; Admin Dose 50 MLS/HR; Start 03/05/19 at 09:30 Cholecalciferol (Vitamin D) 1,000 unit DAILY PO Last administered on 03/06/19 08:55; Admin Dose 1,000 UNIT; Start 03/05/19 at 09:30 Atorvastatin Calcium (Lipitor) 40 mg HS PO Last administered on 03/05/19 20:13; Admin Dose 40 MG; Start 03/05/19 at 21:00 Fish Oil (Fish Oil) 2,000 mg BID PO Last administered on 03/06/19 08:56; Admin Dose 2,000 MG; Start 03/05/19 at 10:00 ALEXI CHOUDHARY NP Mar 06, 2019 16:03
[2019-03-06] MEDS: AMPICILLIN/SULB 1.5GM/NS (PMX) 50 ML IVPB SCH (17:59)
--- NOTE | 2019-03-06 18:17 | PSY ---
Date/Time of Note Date/Time of Note DATE: 03/06/19 TIME: 18:13 Psychiatric Subjective Eval Subjective Evaluation Chief Complaint: R89. ALTERED MORE THAN USUAL, STATED BY SON. History of present illness Patient is a 89-year-old female with underlying medical issues of COPD, hyperten rosy, stroke with right-sided hemiparesis and CKD who is currently admitted on the medical units for worsening symptoms of confusion. On a [id number] evaluation patient refused to speak, primary nurse states she has been resistive with care and difficult to redirect. Pay records patient does not have any prior psychiatric history. Past psychiatric history No records of mental illness Hospitalization: other Family History Problems Family History Problems: (1) Family history of cardiac disorder Relations: 33 FATHER; 32 MOTHER, onset: 60 years & older Medical history Problems Medical Problems: (1) Altered mental status Status: Acute (2) Chronic kidney disease Status: Acute (3) Community acquired pneumonia Status: Acute (4) Severe sepsis Status: Acute Allergies: Coded Allergies: No Known Allergy (Unverified , 03/04/19) Substance Abuse Substance use: other Social History Marital status: other DPA/Conservatorship: No Psychiatric Objective Eval Review of Systems: Review of Systems: Not Applicable Physical Examination: Appetite: Adequate Interest: Adequate Mental Status Examination: Appearance: Poor Hygiene Eye Contact: Poor Psychomotor Activity: Slow Behavior: Agitated, Other (.'s of agitation) Speech: Soft AFFECT: Constricted Mood: Anxious Cognition: Alert Attention Span: Distractible Laboratory Results Laboratory Tests Test 03/05/19 05:14 03/05/19 12:30 03/06/19 05:27 White Blood Count 11.2 10^3/ul 10.9 10^3/ul Red Blood Count 3.87 10^6/ul 3.80 10^6/ul Hemoglobin 11.3 g/dl 10.9 g/dl Hematocrit 36.3 % 34.7 % Mean Corpuscular Volume 93.8 fl 91.3 fl Mean Corpuscular Hemoglobin 29.2 pg 28.7 pg Mean Corpuscular 31.1 g/dl 31.4 g/dl Hemoglobin Concent Red Cell Distribution Width 12.9 % 13.0 % Platelet Count 378 10^3/UL 319 10^3/UL Mean Platelet Volume 10.2 fl 10.4 fl Immature Granulocytes % 0.800 % 0.900 % Neutrophils % 67.1 % 54.8 % Lymphocytes % 21.4 % 28.2 % Monocytes % 7.2 % 11.8 % Eosinophils % 2.9 % 3.5 % Basophils % 0.6 % 0.8 % Nucleated Red Blood Cells % 0.0 /100WBC 0.0 /100WBC Immature Granulocytes # 0.090 10^3/ul 0.100 10^3/ul Neutrophils # 7.5 10^3/ul 6.0 10^3/ul Lymphocytes # 2.4 10^3/ul 3.1 10^3/ul Monocytes # 0.8 10^3/ul 1.3 10^3/ul Eosinophils # 0.3 10^3/ul 0.4 10^3/ul Basophils # 0.1 10^3/ul 0.1 10^3/ul Nucleated Red Blood Cells # 0.0 10^3/ul 0.0 10^3/ul Sodium Level 146 mmol/L 143 mmol/L Potassium Level 4.4 mmol/L 4.7 mmol/L Chloride Level 113 mmol/L 113 mmol/L Carbon Dioxide Level 22 mmol/L 19 mmol/L Anion Gap 11 11 Blood Urea Nitrogen 33 mg/dl 32 mg/dl Creatinine 1.94 mg/dl 1.97 mg/dl Est Glomerular Filtrat mL/min mL/min Rate mL/min Glucose Level 114 mg/dl 101 mg/dl Calcium Level 8.8 mg/dl 8.4 mg/dl Phosphorus Level 4.0 mg/dl 4.3 mg/dl Magnesium Level 2.0 mg/dl 2.0 mg/dl Total Bilirubin 0.3 mg/dl Direct Bilirubin 0.00 mg/dl Indirect Bilirubin 0.3 mg/dl Aspartate Amino Transf (AST/SGOT) 23 IU/L Alanine 8 IU/L Aminotransferase (ALT/SGPT) Alkaline Phosphatase 104 IU/L Creatine Kinase 70 IU/L Creatine Kinase Index 3.2 Creatinine Kinase MB (Mass) 2.22 ng/ml Troponin I 0.037 ng/ml Total Protein 8.1 g/dl Albumin 3.8 g/dl Globulin 4.30 g/dl Albumin/Globulin Ratio 0.88 Triglycerides Level 352 mg/dl Cholesterol Level 233 mg/dl LDL Cholesterol, Calculated 133 mg/dl HDL Cholesterol 30 mg/dl Cholesterol/HDL Ratio 7.7 RATIO Urine Random Creatinine 34 mg/dL Urine Random Sodium 118 mmol/L Urine Microalbumin 38.7 mg/dL Urine 1138 Microalbumin/Creatinine Ratio Urine Total Protein 92.0 mg/dl Assessment and Plan Assessment/Diagnosis Diagnosis Rule out delirium Recommendation/Plan Medication Management No medication required Multiple antipsychotics: No Discharge Disposition: Other Legal Status: Voluntary (Does not meet criteria for 5150 hold) CHRISTY BRIGHT NP Mar 06, 2019 18:17
[2019-03-06 20:00] VITALS: BP 111/52; PULSE 98; RESP 18
[2019-03-06] MEDS ORDERED: HALOPERIDOL 5 MG INJ ONE (20:41)
[2019-03-06] MEDS: ATORVASTATIN 40 MG TAB PO SCH (21:15)
[2019-03-06] MEDS ORDERED: VANCOMYCIN 1 GM 250 ML IVPB SCH (23:00)
[2019-03-07] MEDS: DEXTROSE 5% 1,000 ML IV SCH ×3 (01:30→22:28)
[2019-03-07 02:00] VITALS: BP 96/52; PULSE 87; RESP 18
[2019-03-07 08:00] VITALS: BP_SYST 177; BP_SYST 98; BP_DIAS 44; BP_DIAS 79; PULSE 74; PULSE 80; RESP 19
[2019-03-07] MEDS: BUDESONIDE (NEB) 0.5MG/2ML AMP INH SCH ×2 (08:08→20:58)
[2019-03-07] MEDS: ARFORMOTEROL TARTRATE 15MCG/2 ML AMP INH SCH ×2 (08:08→20:48)
--- NOTE | 2019-03-07 08:57 | PN ---
DATE: 03/07/2019 SUBJECTIVE: The patient remains confused, altered. The patient received Haldol overnight. No other events noted. OBJECTIVE: VITAL SIGNS: Blood pressure 96/52, respiration 18, pulse 87, temperature 98.0. HEENT: Head is normocephalic. NECK: Supple. HEART: Regular rate. LUNGS: Show diminished breath sounds at the base. ABDOMEN: Soft, nontender to palpation without rebound or guarding. EXTREMITIES: Negative for clubbing, cyanosis, no edema. DERMATOLOGIC: No rashes. MUSCULOSKELETAL: No joint effusion. NEUROLOGIC: No change in exam. MEDICATIONS: Reviewed. LABORATORY DATA: Has been reviewed. IMAGING STUDIES: Have been reviewed. ASSESSMENT AND PLAN: 1. Nonoliguric acute kidney injury on top of chronic kidney disease stage III. Etiology of acute ki dney injury is secondary to hemodynamics. Renal function appears to have stabilized. Continue [facility] nt treatment plans, supportive care, renally dose all meds. 2. Hypernatremia. Patient's sodium levels are improving. Continue D5 water. Will encourage free w ater intake. 3. Anemia. Monitor hemoglobin and hematocrit levels. 4. Metabolic acidosis. Continue to monitor. 5. Mineral bone disorder, monitor calcium and phosphorus levels. Continue vitamin D supplementation . 6. Acute encephalopathy, etiology is toxic metabolic. Continue to monitor. 7. Sepsis with gram-negative bacteremia. Continue current antibiotic regimen. 8. Hypertension. Continue current blood pressure regimen. 9. History of chronic obstructive pulmonary disease. Dictated By: ASHANTI SEYMOUR DO NR/NTS Conf#: [id number] DID#: [id number] CC: MIESHA HERNANDEZ MD;*EndCC*
[2019-03-07 09:00] VITALS: BP 93/51
[2019-03-07] MEDS: CHOLECALCIFEROL 1,000 UNIT TAB PO SCH (09:00)
[2019-03-07] MEDS: FISH OIL 1,000 MG CAP PO SCH ×2 (09:00→21:04)
[2019-03-07] MEDS: METOPROLOL (XL) 50 MG TAB PO SCH (09:00)
[2019-03-07] MEDS: ASPIRIN (EC) 81 MG TAB PO SCH (09:00)
[2019-03-07] MEDS: HEPARIN 5,000 UNIT/1 ML VIAL SC SCH ×2 (09:00→21:00)
--- NOTE | 2019-03-07 11:34 | PN ---
Date/Time of Note Date/Time of Note DATE: 03/07/19 TIME: 11:30 Assessment/Plan VTE Prophylaxis Risk score (from Ns)>0 risk: 6 SCD applied (from Ns): Yes Pharmacological prophylaxis: heparin Pharm contraindication: patient refusal Lines/Catheters [facility]ter Type [facility]from [facility] Saline Lock Urinary Cath still in place: No Assessment/Plan Hospital Course SUBJECTIVE: Patient less confused today as per the patient's son. OBJECTIVE: Physical Exam General: Adequately build 89 year-old female lying in bed in no apparent distress. HEENT: Normocephalic, atraumatic. Eyes: Anicteric sclerae, conjunctivae clear. ENT: Nasal septum midline, oral mucosa is dry. Neck supple, no JVD noticed. Respiratory: Bilaterally diminished breath sounds. No use of accessory muscles of respiration. No adventitious breath sounds. Cardiovascular: S1, S2 heard. Regular rate and rhythm. Abdomen: Soft, nontender, and nondistended. Bowel sounds positive in all 4 phong drants. Genitourinary: Deferred. Extremities: No cyanosis, no clubbing, no edema. Peripheral pulses palpable. Neurologic: Awake and alert. Right hemiparesis. Skin: Normal skin turgor. No skin rashes. 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 admitted to inpatient setting for further treatment and evaluation. 1. Acute encephalopathy. Etiology unclear. Brain CT and MRI negative for any acute findings. Neurology following. ST and physical therapy evaluation. 2. Suspect sinusitis. On ABX as per ID. 3. Gram positive bacteremia. Possibly from sample contamination. Vancomycin has been discontinued. 4. Acute on chronic kidney disease. Continue IV fluids. Nephrology following. Hold nephrotoxic medications. 5. Hypertension. Continue antihypertensives. Hold ARB. 6. History of stroke. Continue ASA and statins. 7. COPD. No evidence of any exacerbation. Continue LABA. Continue PRN EDELMIRA. 8. Normocytic anemia. Most probably anemia of chronic disease. Monitor H&H closely. 9. Dyslipidemia. Continue statins. 10. Carotid artery disease. Doppler 64% stenosis in the distal right common carotid artery; 54% stenosis in the left carotid bulb; and elevated velocities in the bilateral external carotid arteries, possibly indicating 50 - 69% stenoses. Continue medical management. Patient not a good candidate for CTA because of underlying CKD. 11. Fluids, electrolytes, and nutrition. Pured diet. Aspiration precautions. 12. DVT prophylaxis. SQ heparin (family refusing). 13. Plan. Continue supportive care. Continue antimicrobials as per ID. Await clinical improvement before discharging the patient home. The patient was seen in collaboration with Dr. Chandler. Result Diagram: 03/07/1911 03/07/1911 Results 24hrs Laboratory Tests Test 03/07/19 05:11 White Blood Count 10.8 Red Blood Count 3.38 L Hemoglobin 10.0 L Hematocrit 31.3 L Mean Corpuscular Volume 92.6 Mean Corpuscular Hemoglobin 29.6 Mean Corpuscular Hemoglobin Concent 31.9 L Red Cell Distribution Width 12.9 Platelet Count 290 Mean Platelet Volume 10.2 Immature Granulocytes % 0.600 H Neutrophils % 63.8 Lymphocytes % 21.7 Monocytes % 9.9 Eosinophils % 3.3 Basophils % 0.7 Nucleated Red Blood Cells % 0.0 Immature Granulocytes # 0.070 H Neutrophils # 6.9 Lymphocytes # 2.3 Monocytes # 1.1 H Eosinophils # 0.4 Basophils # 0.1 Nucleated Red Blood Cells # 0.0 Sodium Level 143 Potassium Level 4.4 Chloride Level 112 H Carbon Dioxide Level 21 Anion Gap 10 Blood Urea Nitrogen 28 H Creatinine 1.83 H Est Glomerular Filtrat Rate mL/min Glucose Level 119 Calcium Level 8.6 Phosphorus Level 4.2 Magnesium Level 2.0 Exam/Review of Systems Exam Vitals Vital Signs Date Temp Pulse Resp B/P (MAP) Pulse Ox O2 O2 Flow FiO2 Time Delivery Rate 03/07/19 93/51 (65) 09:00 03/07/19 86 18 96 21 08:12 03/07/19 97.7 Nasal 08:00 Cannula Intake and Output 03/06/19 03/06/19 03/07/19 1515:00 23:00 07:00 IntakeIntake Total 550 ml BalanceBalance 550 ml Results Results 24hrs Laboratory Tests Test 03/07/19 05:11 White Blood Count 10.8 Red Blood Count 3.38 L Hemoglobin 10.0 L Hematocrit 31.3 L Mean Corpuscular Volume 92.6 Mean Corpuscular Hemoglobin 29.6 Mean Corpuscular Hemoglobin Concent 31.9 L Red Cell Distribution Width 12.9 Platelet Count 290 Mean Platelet Volume 10.2 Immature Granulocytes % 0.600 H Neutrophils % 63.8 Lymphocytes % 21.7 Monocytes % 9.9 Eosinophils % 3.3 Basophils % 0.7 Nucleated Red Blood Cells % 0.0 Immature Granulocytes # 0.070 H Neutrophils # 6.9 Lymphocytes # 2.3 Monocytes # 1.1 H Eosinophils # 0.4 Basophils # 0.1 Nucleated Red Blood Cells # 0.0 Sodium Level 143 Potassium Level 4.4 Chloride Level 112 H Carbon Dioxide Level 21 Anion Gap 10 Blood Urea Nitrogen 28 H Creatinine 1.83 H Est Glomerular Filtrat Rate mL/min Glucose Level 119 Calcium Level 8.6 Phosphorus Level 4.2 Magnesium Level 2.0 Medications Medication Current Medications IV Flush (NS 3 ml) 3 ml PER PROTOCOL IV ; Start 03/04/19 at 11:00 Ondansetron HCl (Zofran Inj) 4 mg Q6H PRN IV NAUSEA/VOMITING; Start 03/04/19 at 11:00 Acetaminophen (Tylenol Tab) 650 mg Q6H PRN PO .PAIN 1-3 OR TEMP; Start 03/04/19 at 11:00 Arformoterol Tartrate (Brovana (Neb)) 2 ml BID RESP THERAPY INH Last administered on 03/07/19at 08:08; Admin Dose 2 ML; Start 03/04/19 at 20:00 Metoprolol Succinate (Toprol Xl) 50 mg DAILY PO Last administered on 03/06/19at 08:55; Admin Dose 50 MG; Start 03/05/19 at 09:00 Albuterol (Proventil 0.083% (Neb)) 2.5 mg Q2H RESP THERAPY PRN HHN SHORTNESS OF BREATH; Start 03/04/19 at 13:30 Heparin Sodium (Porcine) (Heparin (5000 Units/1ml)) 5,000 unit BID SC Last administered on 03/04/19at 21:27; Admin Dose 5,000 UNIT; Start 03/04/19 at 21:00 Aspirin (Halfprin) 81 mg DAILY PO Last administered on 03/06/19at 08:55; Admin Dose 81 MG; Start 03/05/19 at 09:00 Budesonide (Pulmicort (Neb)) 0.5 mg BID RESP THERAPY INH Last administered on 03/07/19 08:08; Admin Dose 0.5 MG; Start 03/04/19 at 20:00 Dextrose 1,000 ml @ 40 mls/hr Q24H IV Last administered on 03/07/19 04:42; Admin Dose 50 MLS/HR; Start 03/05/19 at 09:30 Cholecalciferol (Vitamin D) 1,000 unit DAILY PO Last administered on 03/06/19 08:55; Admin Dose 1,000 UNIT; Start 03/05/19 at 09:30 Atorvastatin Calcium (Lipitor) 40 mg HS PO Last administered on 03/06/19at 21:15; Admin Dose 40 MG; Start 03/05/19 at 21:00 Fish Oil (Fish Oil) 2,000 mg BID PO Last administered on 03/06/19at 21:15; Admin Dose 2,000 MG; Start 03/05/19 at 10:00 Ampicillin Sodium/ Sulbactam Sodium 50 ml @ 100 mls/hr Q24H IVPB Last administered on 03/06/19at 17:59; Admin Dose 100 MLS/HR; Start 03/06/19 at 18:00 KI MARIE NP Mar 07, 2019 11:34
--- NOTE | 2019-03-07 13:35 | CONS ---
Date/Time of Note Date/Time of Note DATE: 03/07/19 TIME: 13:34 Consult Date/Type/Reason Admit Date Mar 04, 2019 at 05:47 Type of Consult Psych Ordering Provider: KI MARIE NP Subjective Patient is Vietnamese speaking, son reports she is more calm today, and able to recognize son. She is still anxious but directable. Explained risk and benefit of anti anxiety. Will continue to monitor Objective Patient Appearance: Appropriate dress Voice Loudness: Mildly Soft/Quiet Mood and Affect Description: Anxious, Calm Mood or Affect: Cooperative Speech Pattern: Clear Thought Process: Disorganized Hallucination Type: None Assessment/Plan Recommendations Klonopin 0.25mg Q6H PRN Anxiety CHRISTY BRIGHT NP Mar 07, 2019 13:35
[2019-03-07 14:00] VITALS: BP 117/55; PULSE 85; RESP 19
[2019-03-07] MEDS ORDERED: clonAZEPAM 0.5 MG TAB PO PRN (14:00)
--- NOTE | 2019-03-07 14:36 | CONS ---
Assessment/Plan Assessment/Plan Hospital Course (Demo Recall) Patient is more awake today, son at bedside, WBC went down to 10.8, no shift no bands BUN 28 creatinine 1.83 Antimicrobials: Unasyn Physical examination: Chronically ill-appearing elderly woman who is in no distress. Head atraumatic normocephalic sclera nonicteric vehicle mucosa dry neck is supple chest rise symmetrical breath sounds diminished bases heart S1-S2 abdomen soft bowel sounds present extremities without cyanosis Assessment: 1. Staph bacteremia likely contaminant 2. Acute sinusitis and bilateral mastoiditis 3. Acute encephalopathy 4. Hypertension 5. History of CVA Plan: Clinically improving, continue on current antibiotics, anticipate discharge on oral Augmentin to complete 2 week course Consultation Date/Type/Reason Admit Date/Time Mar 04, 2019 at 05:47 Initial Consult Date Type of Consult id Requesting Provider: KI MARIE NP Date/Time of Note DATE: 03/07/19 TIME: 14:35 Exam/Review of Systems Exam Vitals Vital Signs Date Temp Pulse Resp B/P (MAP) Pulse Ox O2 O2 Flow FiO2 Time Delivery Rate 03/07/19 93/51 (65) 09:00 03/07/19 86 18 96 21 08:12 03/07/19 97.7 Nasal 08:00 Cannula Intake and Output 03/06/19 03/06/19 03/07/19 1515:00 23:00 07:00 IntakeIntake Total 550 ml BalanceBalance 550 ml Results Result Diagram: 03/07/19 0511 03/07/19 0511 Results 24hrs Laboratory Tests Test 03/07/19 05:11 White Blood Count 10.8 Red Blood Count 3.38 L Hemoglobin 10.0 L Hematocrit 31.3 L Mean Corpuscular Volume 92.6 Mean Corpuscular Hemoglobin 29.6 Mean Corpuscular Hemoglobin Concent 31.9 L Red Cell Distribution Width 12.9 Platelet Count 290 Mean Platelet Volume 10.2 Immature Granulocytes % 0.600 H Neutrophils % 63.8 Lymphocytes % 21.7 Monocytes % 9.9 Eosinophils % 3.3 Basophils % 0.7 Nucleated Red Blood Cells % 0.0 Immature Granulocytes # 0.070 H Neutrophils # 6.9 Lymphocytes # 2.3 Monocytes # 1.1 H Eosinophils # 0.4 Basophils # 0.1 Nucleated Red Blood Cells # 0.0 Sodium Level 143 Potassium Level 4.4 Chloride Level 112 H Carbon Dioxide Level 21 Anion Gap 10 Blood Urea Nitrogen 28 H Creatinine 1.83 H Est Glomerular Filtrat Rate mL/min Glucose Level 119 Calcium Level 8.6 Phosphorus Level 4.2 Magnesium Level 2.0 Medications Medication Current Medications IV Flush (NS 3 ml) 3 ml PER PROTOCOL IV ; Start 03/04/19 at 11:00 Ondansetron HCl (Zofran Inj) 4 mg Q6H PRN IV NAUSEA/VOMITING; Start 03/04/19 at 11:00 Acetaminophen (Tylenol Tab) 650 mg Q6H PRN PO .PAIN 1-3 OR TEMP; Start 03/04/19 at 11:00 Arformoterol Tartrate (Brovana (Neb)) 2 ml BID RESP THERAPY INH Last administered on 03/07/19 08:08; Admin Dose 2 ML; Start 03/04/19 at 20:00 Metoprolol Succinate (Toprol Xl) 50 mg DAILY PO Last administered on 03/06/19 08:55; Admin Dose 50 MG; Start 03/05/19 at 09:00 Albuterol (Proventil 0.083% (Neb)) 2.5 mg Q2H RESP THERAPY PRN HHN SHORTNESS OF BREATH; Start 03/04/19 at 13:30 Heparin Sodium (Porcine) (Heparin (5000 Units/1ml)) 5,000 unit BID SC Last administered on 03/04/19 21:27; Admin Dose 5,000 UNIT; Start 03/04/19 at 21:00 Aspirin (Halfprin) 81 mg DAILY PO Last administered on 03/06/19 08:55; Admin Dose 81 MG; Start 03/05/19 at 09:00 Budesonide (Pulmicort (Neb)) 0.5 mg BID RESP THERAPY INH Last administered on 03/07/19 08:08; Admin Dose 0.5 MG; Start 03/04/19 at 20:00 Dextrose 1,000 ml @ 40 mls/hr Q24H IV Last administered on 03/07/19 04:42; Admin Dose 50 MLS/HR; Start 03/05/19 at 09:30 Cholecalciferol (Vitamin D) 1,000 unit DAILY PO Last administered on 03/06/19 08:55; Admin Dose 1,000 UNIT; Start 03/05/19 at 09:30 Atorvastatin Calcium (Lipitor) 40 mg HS PO Last administered on 03/06/19at 21:15; Admin Dose 40 MG; Start 03/05/19 at 21:00 Fish Oil (Fish Oil) 2,000 mg BID PO Last administered on 03/06/19at 21:15; Admin Dose 2,000 MG; Start 03/05/19 at 10:00 Ampicillin Sodium/ Sulbactam Sodium 50 ml @ 100 mls/hr Q24H IVPB Last administered on 03/06/19at 17:59; Admin Dose 100 MLS/HR; Start 03/06/19 at 18:00 Clonazepam (Klonopin) 0.25 mg Q8 PRN PO ANXIETY; Start 03/07/19 at 14:00 ALEXI CHOUDHARY NP Mar 07, 2019 14:36
[2019-03-07] MEDS: AMPICILLIN/SULB 1.5GM/NS (PMX) 50 ML IVPB SCH (17:05)
[2019-03-07 20:00] VITALS: BP 134/61; PULSE 93; RESP 18
[2019-03-07] MEDS: ATORVASTATIN 40 MG TAB PO SCH (21:04)
[2019-03-08 02:00] VITALS: BP 138/75; PULSE 100; RESP 20
[2019-03-08] MEDS ORDERED: HALOPERIDOL 5 MG INJ IM ONE (03:30)
[2019-03-08 08:00] VITALS: BP 128/93; PULSE 102; RESP 18
[2019-03-08] MEDS: BUDESONIDE (NEB) 0.5MG/2ML AMP INH SCH ×2 (08:15→20:03)
[2019-03-08] MEDS: ARFORMOTEROL TARTRATE 15MCG/2 ML AMP INH SCH ×2 (08:25→20:03)
--- NOTE | 2019-03-08 08:30 | PN ---
DATE: 03/08/2019 SUBJECTIVE: The patient is stable, no events overnight. No fevers, nausea or vomiting. OBJECTIVE: VITAL SIGNS: Blood pressure is 138/75, pulse 100, temperature 97.9. HEENT: Head is normocephalic. NECK: Supple. HEART: Regular rate. LUNGS: Show diminished breath sounds at the base. ABDOMEN: Soft, nontender to palpation. No rebound or guarding. EXTREMITIES: Negative for clubbing, cyanosis, no edema. DERMATOLOGIC: No rashes. MUSCULOSKELETAL: No joint effusion. NEUROLOGIC: No change in exam. MEDICATIONS: Reviewed. LABORATORY DATA: Has been reviewed. IMAGING STUDIES: Have been reviewed. ASSESSMENT AND PLAN: 1. Nonoliguric acute kidney injury on top of chronic kidney disease stage III. Etiology of acute ki dney injury is secondary to hemodynamics. Renal function is stabilized. Continue current treatment plan, supportive care, renally dose all meds. 2. Hypernatremia. Patient's sodium levels have improved. Will discontinue D5 water. Encourage michelle e water intake. 3. Anemia. Monitor hemoglobin and hematocrit levels. 4. Metabolic acidosis, improved. 5. Mineral bone disorder. Monitor calcium and phosphorus levels, give supplementation. 6. Acute encephalopathy, etiology is toxic metabolic. Behavioral. Continue to monitor. Follow up with psychiatry. 7. Sepsis, secondary to gram-negative bacteremia. Continue current antibiotic regimen. 8. Hypertension. Continue current blood pressure regimen. 9. History of chronic obstructive pulmonary disease. Dictated By: ASHANTI BURGESS/MIGUEL Conf#: [id number] DID#: [id number] CC: MIESHA HERNANDEZ MD;*EndCC*
[2019-03-08] MEDS: CHOLECALCIFEROL 1,000 UNIT TAB PO SCH (08:47)
[2019-03-08] MEDS: FISH OIL 1,000 MG CAP PO SCH ×2 (08:47→20:59)
[2019-03-08] MEDS: ASPIRIN (EC) 81 MG TAB PO SCH (08:47)
[2019-03-08] MEDS: METOPROLOL (XL) 50 MG TAB PO SCH (08:47)
[2019-03-08] MEDS: HEPARIN 5,000 UNIT/1 ML VIAL SC SCH ×2 (08:50→20:59)
--- NOTE | 2019-03-08 11:52 | PN ---
Date/Time of Note Date/Time of Note DATE: 03/08/19 TIME: 11:50 Assessment/Plan VTE Prophylaxis Risk score (from Ns)>0 risk: 6 [place] [facility] [place] [facility] Pharmacological prophylaxis: heparin Pharm contraindication: patient refusal Lines/Catheters IV Catheter Type (from [facility] Saline Lock Urinary Cath still in place: No Assessment/Plan Hospital Course SUBJECTIVE: Patient less confused today as per the patient's son. OBJECTIVE: Physical Exam General: Adequately build 89 year-old female lying in bed in no apparent distress. HEENT: Normocephalic, atraumatic. Eyes: Anicteric sclerae, conjunctivae clear. ENT: Nasal septum midline, oral mucosa is dry. Neck supple, no JVD noticed. Respiratory: Bilaterally diminished breath sounds. No use of accessory muscles of respiration. No adventitious breath sounds. Cardiovascular: S1, S2 heard. Regular rate and rhythm. Abdomen: Soft, nontender, and nondistended. Bowel sounds positive in all 4 phong drants. Genitourinary: Deferred. Extremities: No cyanosis, no clubbing, no edema. Peripheral pulses palpable. Neurologic: Awake and alert. Right hemiparesis. Skin: Normal skin turgor. No skin rashes. 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 admitted to inpatient setting for further treatment and evaluation. 1. Acute encephalopathy. Etiology unclear. Brain CT and MRI negative for any acute findings. Neurology following. 2. Suspect sinusitis. On ABX as per ID. 3. Gram positive bacteremia. Possibly from sample contamination. Vancomycin has been discontinued. 4. Acute on chronic kidney disease. Continue IV fluids. Nephrology following. Hold nephrotoxic medications. 5. Hypertension. Continue antihypertensives. Hold ARB. 6. History of stroke. Continue ASA and statins. 7. COPD. No evidence of any exacerbation. Continue LABA. Continue PRN EDELMIRA. 8. Normocytic anemia. Most probably anemia of chronic disease. Monitor H&H closely. 9. Dyslipidemia. Continue statins. 10. Carotid artery disease. Doppler 64% stenosis in the distal right common carotid artery; 54% stenosis in the left carotid bulb; and elevated velocities in the bilateral external carotid arteries, possibly indicating 50 - 69% stenoses. Continue medical management. Patient not a good candidate for CTA because of underlying CKD. 11. Fluids, electrolytes, and nutrition. Pured diet. Aspiration precautions. 12. DVT prophylaxis. SQ heparin (family refusing). 13. Plan. Continue supportive care. Continue antimicrobials as per ID. Await clinical improvement before discharging the patient home. The patient was seen in collaboration with Dr. Chandler. Result Diagram: 03/08/19 0835 03/08/19 0835 Results 24hrs Laboratory Tests Test 03/08/19 08:35 White Blood Count 11.2 H Red Blood Count 3.76 L Hemoglobin 11.0 L Hematocrit 34.1 L Mean Corpuscular Volume 90.7 Mean Corpuscular Hemoglobin 29.3 Mean Corpuscular Hemoglobin Concent 32.3 Red Cell Distribution Width 13.2 Platelet Count 258 Mean Platelet Volume 10.5 H Immature Granulocytes % 0.600 H Neutrophils % 67.5 Lymphocytes % 21.1 Monocytes % 8.2 Eosinophils % 1.8 Basophils % 0.8 Nucleated Red Blood Cells % 0.0 Immature Granulocytes # 0.070 H Neutrophils # 7.6 H Lymphocytes # 2.4 Monocytes # 0.9 Eosinophils # 0.2 Basophils # 0.1 Nucleated Red Blood Cells # 0.0 Sodium Level 144 Potassium Level 4.6 Chloride Level 112 H Carbon Dioxide Level 22 Anion Gap 10 Blood Urea Nitrogen 29 H Creatinine 2.02 H Est Glomerular Filtrat Rate mL/min Glucose Level 127 Calcium Level 8.5 Phosphorus Level 4.5 Magnesium Level 2.0 Exam/Review of Systems Exam Vitals Vital Signs Date Temp Pulse Resp B/P (MAP) Pulse Ox O2 O2 Flow FiO2 Time Delivery Rate 03/08/19 94 18 95 21 10:15 03/08/19 97.7 128/93 08:00 (105) 03/07/19 Nasal 08:00 Cannula Intake and Output 03/07/19 03/07/19 03/08/19 1414:59 22:59 06:59 IntakeIntake Total 400 ml 950 ml 740 ml OutputOutput Total 1 ml BalanceBalance 399 ml 950 ml 740 ml Results Results 24hrs Laboratory Tests Test 03/08/19 08:35 White Blood Count 11.2 H Red Blood Count 3.76 L Hemoglobin 11.0 L Hematocrit 34.1 L Mean Corpuscular Volume 90.7 Mean Corpuscular Hemoglobin 29.3 Mean Corpuscular Hemoglobin Concent 32.3 Red Cell Distribution Width 13.2 Platelet Count 258 Mean Platelet Volume 10.5 H Immature Granulocytes % 0.600 H Neutrophils % 67.5 Lymphocytes % 21.1 Monocytes % 8.2 Eosinophils % 1.8 Basophils % 0.8 Nucleated Red Blood Cells % 0.0 Immature Granulocytes # 0.070 H Neutrophils # 7.6 H Lymphocytes # 2.4 Monocytes # 0.9 Eosinophils # 0.2 Basophils # 0.1 Nucleated Red Blood Cells # 0.0 Sodium Level 144 Potassium Level 4.6 Chloride Level 112 H Carbon Dioxide Level 22 Anion Gap 10 Blood Urea Nitrogen 29 H Creatinine 2.02 H Est Glomerular Filtrat Rate mL/min Glucose Level 127 Calcium Level 8.5 Phosphorus Level 4.5 Magnesium Level 2.0 Medications Medication Current Medications IV Flush (NS 3 ml) 3 ml PER PROTOCOL IV ; Start 03/04/19 at 11:00 Ondansetron HCl (Zofran Inj) 4 mg Q6H PRN IV NAUSEA/VOMITING; Start 03/04/19 at 11:00 Acetaminophen (Tylenol Tab) 650 mg Q6H PRN PO .PAIN 1-3 OR TEMP; Start 03/04/19 at 11:00 Arformoterol Tartrate (Brovana (Neb)) 2 ml BID RESP THERAPY INH Last administered on 03/08/19at 08:25; Admin Dose 2 ML; Start 03/04/19 at 20:00 Metoprolol Succinate (Toprol Xl) 50 mg DAILY PO Last administered on 03/08/19at 08:47; Admin Dose 50 MG; Start 03/05/19 at 09:00 Albuterol (Proventil 0.083% (Neb)) 2.5 mg Q2H RESP THERAPY PRN HHN SHORTNESS OF BREATH; Start 03/04/19 at 13:30 Heparin Sodium (Porcine) (Heparin (5000 Units/1ml)) 5,000 unit BID SC Last administered on 03/04/19at 21:27; Admin Dose 5,000 UNIT; Start 03/04/19 at 21:00 Aspirin (Halfprin) 81 mg DAILY PO Last administered on 03/08/19at 08:47; Admin Dose 81 MG; Start 03/05/19 at 09:00 Budesonide (Pulmicort (Neb)) 0.5 mg BID RESP THERAPY INH Last administered on 03/08/19 08:15; Admin Dose 0.5 MG; Start 03/04/19 at 20:00 Cholecalciferol (Vitamin D) 1,000 unit DAILY PO Last administered on 03/08/19 08:47; Admin Dose 1,000 UNIT; Start 03/05/19 at 09:30 Atorvastatin Calcium (Lipitor) 40 mg HS PO Last administered on 03/07/19at 21:04; Admin Dose 40 MG; Start 03/05/19 at 21:00 Fish Oil (Fish Oil) 2,000 mg BID PO Last administered on 03/08/19 08:47; Admin Dose 2,000 MG; Start 03/05/19 at 10:00 Ampicillin Sodium/ Sulbactam Sodium 50 ml @ 100 mls/hr Q24H IVPB Last administered on 03/07/19 17:05; Admin Dose 100 MLS/HR; Start 03/06/19 at 18:00 Clonazepam (Klonopin) 0.25 mg Q8 PRN PO ANXIETY; Start 03/07/19 at 14:00 KI MARIE NP Mar 08, 2019 11:51
[2019-03-08 14:00] VITALS: BP 136/79; PULSE 95; RESP 19
--- NOTE | 2019-03-08 14:51 | CONS ---
Assessment/Plan Assessment/Plan Hospital Course (Demo Recall) Sleeping, no acute events overnight Antimicrobials: Unasyn Physical examination: Chronically ill-appearing elderly woman who is in no distress. Head atraumatic normocephalic sclera nonicteric vehicle mucosa dry neck is supple chest rise symmetrical breath sounds diminished bases heart S1-S2 abdomen soft bowel sounds present extremities without cyanosis Assessment: 1. Staph bacteremia likely contaminant 2. Acute sinusitis and bilateral mastoiditis 3. Acute encephalopathy 4. Hypertension 5. History of CVA Plan: Stable, continue on current antibiotics, anticipate discharge on oral Augmentin to complete 2 week course Consultation Date/Type/Reason Admit Date/Time Mar 04, 2019 at 05:47 Initial Consult Date Type of Consult id Requesting Provider: KI MARIE NP Date/Time of Note DATE: 03/08/19 TIME: 14:51 Exam/Review of Systems Exam Vitals Vital Signs Date Temp Pulse Resp B/P (MAP) Pulse Ox O2 O2 Flow FiO2 Time Delivery Rate 03/08/19 94 18 95 21 10:15 03/08/19 97.7 128/93 08:00 (105) 03/07/19 Nasal 08:00 Cannula Intake and Output 03/07/19 03/07/19 03/08/19 1515:00 23:00 07:00 IntakeIntake Total 400 ml 950 ml 740 ml OutputOutput Total 1 ml BalanceBalance 399 ml 950 ml 740 ml Results Result Diagram: 03/08/19 0835 03/08/19 0835 Results 24hrs Laboratory Tests Test 03/08/19 08:35 White Blood Count 11.2 H Red Blood Count 3.76 L Hemoglobin 11.0 L Hematocrit 34.1 L Mean Corpuscular Volume 90.7 Mean Corpuscular Hemoglobin 29.3 Mean Corpuscular Hemoglobin Concent 32.3 Red Cell Distribution Width 13.2 Platelet Count 258 Mean Platelet Volume 10.5 H Immature Granulocytes % 0.600 H Neutrophils % 67.5 Lymphocytes % 21.1 Monocytes % 8.2 Eosinophils % 1.8 Basophils % 0.8 Nucleated Red Blood Cells % 0.0 Immature Granulocytes # 0.070 H Neutrophils # 7.6 H Lymphocytes # 2.4 Monocytes # 0.9 Eosinophils # 0.2 Basophils # 0.1 Nucleated Red Blood Cells # 0.0 Sodium Level 144 Potassium Level 4.6 Chloride Level 112 H Carbon Dioxide Level 22 Anion Gap 10 Blood Urea Nitrogen 29 H Creatinine 2.02 H Est Glomerular Filtrat Rate mL/min Glucose Level 127 Calcium Level 8.5 Phosphorus Level 4.5 Magnesium Level 2.0 Medications Medication Current Medications IV Flush (NS 3 ml) 3 ml PER PROTOCOL IV ; Start 03/04/19 at 11:00 Ondansetron HCl (Zofran Inj) 4 mg Q6H PRN IV NAUSEA/VOMITING; Start 03/04/19 at 11:00 Acetaminophen (Tylenol Tab) 650 mg Q6H PRN PO .PAIN 1-3 OR TEMP; Start 03/04/19 at 11:00 Arformoterol Tartrate (Brovana (Neb)) 2 ml BID RESP THERAPY INH Last administered on 03/08/19 08:25; Admin Dose 2 ML; Start 03/04/19 at 20:00 Metoprolol Succinate (Toprol Xl) 50 mg DAILY PO Last administered on 03/08/19 08:47; Admin Dose 50 MG; Start 03/05/19 at 09:00 Albuterol (Proventil 0.083% (Neb)) 2.5 mg Q2H RESP THERAPY PRN HHN SHORTNESS OF BREATH; Start 03/04/19 at 13:30 Heparin Sodium (Porcine) (Heparin (5000 Units/1ml)) 5,000 unit BID SC Last administered on 03/04/19 21:27; Admin Dose 5,000 UNIT; Start 03/04/19 at 21:00 Aspirin (Halfprin) 81 mg DAILY PO Last administered on 03/08/19 08:47; Admin Dose 81 MG; Start 03/05/19 at 09:00 Budesonide (Pulmicort (Neb)) 0.5 mg BID RESP THERAPY INH Last administered on 03/08/19 08:15; Admin Dose 0.5 MG; Start 03/04/19 at 20:00 Cholecalciferol (Vitamin D) 1,000 unit DAILY PO Last administered on 03/08/19 08:47; Admin Dose 1,000 UNIT; Start 03/05/19 at 09:30 Atorvastatin Calcium (Lipitor) 40 mg HS PO Last administered on 03/07/19 21:04; Admin Dose 40 MG; Start 03/05/19 at 21:00 Fish Oil (Fish Oil) 2,000 mg BID PO Last administered on 03/08/19at 08:47; Admin Dose 2,000 MG; Start 03/05/19 at 10:00 Ampicillin Sodium/ Sulbactam Sodium 50 ml @ 100 mls/hr Q24H IVPB Last administered on 03/07/19at 17:05; Admin Dose 100 MLS/HR; Start 03/06/19 at 18:00 Clonazepam (Klonopin) 0.25 mg Q8 PRN PO ANXIETY; Start 03/07/19 at 14:00 ALEXI CHOUDHARY NP Mar 08, 2019 14:51
[2019-03-08] MEDS: AMPICILLIN/SULB 1.5GM/NS (PMX) 50 ML IVPB SCH (17:41)
[2019-03-08 20:00] VITALS: BP 143/65; PULSE 84; RESP 18
[2019-03-08] MEDS: ATORVASTATIN 40 MG TAB PO SCH (20:59)
[2019-03-09 02:00] VITALS: BP 119/56; PULSE 84; RESP 17
[2019-03-09 08:00] VITALS: BP 111/47; PULSE 81; RESP 18
--- NOTE | 2019-03-09 08:35 | PN ---
DATE: 03/09/2019 SUBJECTIVE: The patient remains confused. No other events noted. No hemoptysis, hematemesis or hem atochezia. OBJECTIVE: VITAL SIGNS: Blood pressure is 119/56, respirations 17, pulse 84, temperature 97.4. HEENT: Head is normocephalic. NECK: Supple. HEART: Regular rate. LUNGS: Show diminished breath sounds at the base. ABDOMEN: Soft, nontender to palpation without rebound or guarding. EXTREMITIES: Negative for clubbing, cyanosis, no edema. DERMATOLOGIC: No rashes. MUSCULOSKELETAL: No joint effusion. NEUROLOGIC: No change in exam. MEDICATIONS: Reviewed. LABORATORY DATA: Reviewed. IMAGING STUDIES: Reviewed. ASSESSMENT AND PLAN: 1. Nonoliguric acute kidney injury on top of chronic kidney disease stage III. Etiology of acute ki dney injury is secondary to hemodynamics. Renal function appears to have stabilized. Continue [facility] treatment plan, supportive care, renally dose all medications. 2. Hypernatremia, improved. Continue to encourage free water intake. 3. Anemia. Continue to monitor hemoglobin and hematocrit levels. 4. Metabolic acidosis, improved. 5. Mineral bone disorder, monitor calcium and phosphorus levels. 6. Acute encephalopathy. Etiology is toxic metabolic. Continue to monitor. Follow up with psychia try. 7. Sepsis secondary to gram-negative bacteremia. Continue current antibiotic regimen. 8. Hypertension. Continue current blood pressure regimen. 9. History of chronic obstructive pulmonary disease. Dictated By: ASHANTI SEYMOUR DO NR/NTS Conf#: [id number] DID#: [id number] CC: SHEILA MARIE MD; MIESHA HERNANDEZ MD;*EndCC*
[2019-03-09] MEDS: ASPIRIN (EC) 81 MG TAB PO SCH (08:39)
[2019-03-09] MEDS: CHOLECALCIFEROL 1,000 UNIT TAB PO SCH (08:39)
[2019-03-09] MEDS: FISH OIL 1,000 MG CAP PO SCH ×2 (08:39→22:40)
[2019-03-09] MEDS: METOPROLOL (XL) 50 MG TAB PO SCH (08:40)
[2019-03-09] MEDS: HEPARIN 5,000 UNIT/1 ML VIAL SC SCH ×2 (08:42→21:00)
[2019-03-09] MEDS: ARFORMOTEROL TARTRATE 15MCG/2 ML AMP INH SCH ×2 (08:45→20:56)
[2019-03-09] MEDS: BUDESONIDE (NEB) 0.5MG/2ML AMP INH SCH ×2 (08:54→20:56)
--- NOTE | 2019-03-09 12:06 | PN ---
Date/Time of Note Date/Time of Note DATE: 03/09/19 TIME: 12:06 Assessment/Plan VTE Prophylaxis Risk score (from Ns)>0 risk: 6 SCD applied (from [facility] [place]): Yes Pharmacological prophylaxis: heparin Pharm contraindication: patient refusal Lines/Catheters IV [facility] Type [facility] Saline Lock Urinary Cath still in place: No Assessment/Plan Hospital Course SUBJECTIVE: Patient appears calm. OBJECTIVE: Physical Exam General: Adequately build 89 year-old female lying in bed in no apparent distress. HEENT: Normocephalic, atraumatic. Eyes: Anicteric sclerae, conjunctivae clear. ENT: Nasal septum midline, oral mucosa is dry. Neck supple, no JVD noticed. Respiratory: Bilaterally diminished breath sounds. No use of accessory muscles of respiration. No adventitious breath sounds. Cardiovascular: S1, S2 heard. Regular rate and rhythm. Abdomen: Soft, nontender, and nondistended. Bowel sounds positive in all 4 quadrants. Genitourinary: Deferred. Extremities: No cyanosis, no clubbing, no edema. Peripheral pulses palpable. Neurologic: Awake and alert. Right hemiparesis. Skin: Normal skin turgor. No skin rashes. 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 admitted to inpatient setting for further treatment and evaluation. 1. Acute encephalopathy. Etiology unclear. Brain CT and MRI negative for any acute findings. Neurology following. 2. Suspect sinusitis. On ABX as per ID. 3. Gram positive bacteremia. Possibly from sample contamination. Vancomycin has been discontinued. 4. Acute on chronic kidney disease. Continue IV fluids. Nephrology following. Hold nephrotoxic medications. 5. Hypertension. Continue antihypertensives. Hold ARB. 6. History of stroke. Continue ASA and statins. 7. COPD. No evidence of any exacerbation. Continue LABA. Continue PRN EDELMIRA. 8. Normocytic anemia. Most probably anemia of chronic disease. Monitor H&H closely. 9. Dyslipidemia. Continue statins. 10. Carotid artery disease. Doppler 64% stenosis in the distal right common carotid artery; 54% stenosis in the left carotid bulb; and elevated velocities in the bilateral external carotid arteries, possibly indicating 50 - 69% stenoses. Continue medical management. Patient not a good candidate for CTA because of underlying CKD. 11. Fluids, electrolytes, and nutrition. Pured diet. Aspiration precautions. 12. DVT prophylaxis. SQ heparin (family refusing). 13. Plan. Continue supportive care. Continue antimicrobials as per ID. Address discharge disposition with the patient's son. The patient was seen in collaboration with Dr. Chandler. Result Diagram: 03/09/19 0529 03/09/1928 Results 24hrs Laboratory Tests Test 03/09/19 05:28 03/09/19 05:29 Sodium Level 143 Potassium Level 4.4 Chloride Level 113 H Carbon Dioxide Level 20 L Anion Gap 10 Blood Urea Nitrogen 38 H Creatinine 2.03 H Est Glomerular Filtrat Rate mL/min Glucose Level 101 Calcium Level 8.5 White Blood Count 12.2 H Red Blood Count 3.86 L Hemoglobin 11.3 L Hematocrit 35.1 L Mean Corpuscular Volume 90.9 Mean Corpuscular Hemoglobin 29.3 Mean Corpuscular Hemoglobin Concent 32.2 Red Cell Distribution Width 13.3 Platelet Count 261 Mean Platelet Volume 10.5 H Immature Granulocytes % 0.900 H Neutrophils % 61.6 Lymphocytes % 24.9 Monocytes % 9.8 Eosinophils % 2.1 Basophils % 0.7 Nucleated Red Blood Cells % 0.0 Immature Granulocytes # 0.110 H Neutrophils # 7.5 Lymphocytes # 3.0 H Monocytes # 1.2 H Eosinophils # 0.3 Basophils # 0.1 Nucleated Red Blood Cells # 0.0 Phosphorus Level 5.2 H Magnesium Level 2.0 Exam/Review of Systems Exam Vitals Vital Signs Date Temp Pulse Resp B/P (MAP) Pulse Ox O2 O2 Flow FiO2 Time Delivery Rate 03/09/19 82 18 98 21 08:45 03/09/19 96.1 111/47 08:00 (68) 03/08/19 Room Air 14:00 Intake and Output 03/08/19 03/08/19 03/09/19 1515:00 23:00 07:00 IntakeIntake Total 990 ml BalanceBalance 990 ml Results Results 24hrs Laboratory Tests Test 03/09/19 05:28 03/09/19 05:29 Sodium Level 143 Potassium Level 4.4 Chloride Level 113 H Carbon Dioxide Level 20 L Anion Gap 10 Blood Urea Nitrogen 38 H Creatinine 2.03 H Est Glomerular Filtrat Rate mL/min Glucose Level 101 Calcium Level 8.5 White Blood Count 12.2 H Red Blood Count 3.86 L Hemoglobin 11.3 L Hematocrit 35.1 L Mean Corpuscular Volume 90.9 Mean Corpuscular Hemoglobin 29.3 Mean Corpuscular Hemoglobin Concent 32.2 Red Cell Distribution Width 13.3 Platelet Count 261 Mean Platelet Volume 10.5 H Immature Granulocytes % 0.900 H Neutrophils % 61.6 Lymphocytes % 24.9 Monocytes % 9.8 Eosinophils % 2.1 Basophils % 0.7 Nucleated Red Blood Cells % 0.0 Immature Granulocytes # 0.110 H Neutrophils # 7.5 Lymphocytes # 3.0 H Monocytes # 1.2 H Eosinophils # 0.3 Basophils # 0.1 Nucleated Red Blood Cells # 0.0 Phosphorus Level 5.2 H Magnesium Level 2.0 Medications Medication Current Medications IV Flush (NS 3 ml) 3 ml PER PROTOCOL IV ; Start 03/04/19 at 11:00 Ondansetron HCl (Zofran Inj) 4 mg Q6H PRN IV NAUSEA/VOMITING; Start 03/04/19 at 11:00 Acetaminophen (Tylenol Tab) 650 mg Q6H PRN PO .PAIN 1-3 OR TEMP; Start 03/04/19 at 11:00 Arformoterol Tartrate (Brovana (Neb)) 2 ml BID RESP THERAPY INH Last ad ministered on 03/09/19at 08:45; Admin Dose 2 ML; Start 03/04/19 at 20:00 Metoprolol Succinate (Toprol Xl) 50 mg DAILY PO Last administered on 03/09/19at 08:40; Admin Dose 50 MG; Start 03/05/19 at 09:00 Albuterol (Proventil 0.083% (Neb)) 2.5 mg Q2H RESP THERAPY PRN HHN SHORTNESS OF BREATH; Start 03/04/19 at 13:30 Heparin Sodium (Porcine) (Heparin (5000 Units/1ml)) 5,000 unit BID SC Last administered on 03/04/19at 21:27; Admin Dose 5,000 UNIT; Start 03/04/19 at 21:00 Aspirin (Halfprin) 81 mg DAILY PO Last administered on 03/09/19at 08:39; Admin Dose 81 MG; Start 03/05/19 at 09:00 Budesonide (Pulmicort (Neb)) 0.5 mg BID RESP THERAPY INH Last administered on 03/09/19 08:54; Admin Dose 0.5 MG; Start 03/04/19 at 20:00 Cholecalciferol (Vitamin D) 1,000 unit DAILY PO Last administered on 03/09/19 08:39; Admin Dose 1,000 UNIT; Start 03/05/19 at 09:30 Atorvastatin Calcium (Lipitor) 40 mg HS PO Last administered on 03/08/19 20:59; Admin Dose 40 MG; Start 03/05/19 at 21:00 Fish Oil (Fish Oil) 2,000 mg BID PO Last administered on 03/09/19 08:39; Admin Dose 2,000 MG; Start 03/05/19 at 10:00 Ampicillin Sodium/ Sulbactam Sodium 50 ml @ 100 mls/hr Q24H IVPB Last administered on 03/08/19 17:41; Admin Dose 100 MLS/HR; Start 03/06/19 at 18:00 Clonazepam (Klonopin) 0.25 mg Q8 PRN PO ANXIETY; Start 03/07/19 at 14:00 KI MRAIE NP Mar 09, 2019 12:06
[2019-03-09 15:29] VITALS: BP 106/56; PULSE 73; RESP 19
[2019-03-09] MEDS: AMPICILLIN/SULB 1.5GM/NS (PMX) 50 ML IVPB SCH (17:18)
--- NOTE | 2019-03-09 17:32 | CONS ---
Consultation Date/Type/Reason Admit Date/Time Mar 04, 2019 at 05:47 Initial Consult Date SUBJECTIVE: Pt awake, afebrile, looks comfortable. VS: stable T: 97.3 LABS: Reviewed. WBC- 12.2 -elevated. Antimicrobials: Unasyn Physical examination: GEN: Chronically ill-appearing elderly woman, who is in no distress. HENT: Head atraumatic normocephalic sclera nonicteric vehicle mucosa dry; neck is supple PULM: chest rise symmetrical breath sounds diminished bases Heart: S1-S2 Abdomen: soft, bowel sounds present Extremities without cyanosis Assessment: 1. Staph bacteremia likely contaminant 2. Acute sinusitis and bilateral mastoiditis 3. Acute encephalopathy 4. Hypertension 5. History of CVA Plan: Pt is stable. Continue on current antibiotics. Anticipate discharge on oral Augmentin to complete 2 weeks. Elevation in WBC noted will repeat CXR. Requesting Provider: KI MARIE NP Date/Time of Note DATE: 03/09/19 TIME: 17:28 Exam/Review of Systems Exam Vitals Vital Signs Date Temp Pulse Resp B/P (MAP) Pulse Ox O2 O2 Flow FiO2 Time Delivery Rate 03/09/19 97.3 73 19 106/56 98 15:29 (73) 03/09/19 21 08:45 03/08/19 Room Air 14:00 Intake and Output 03/08/19 03/08/19 03/09/19 1515:00 23:00 07:00 IntakeIntake Total 990 ml BalanceBalance 990 ml Results Result Diagram: 03/09/19 0529 03/09/19 0528 Results 24hrs Laboratory Tests Test 03/09/19 05:28 03/09/19 05:29 Sodium Level 143 Potassium Level 4.4 Chloride Level 113 H Carbon Dioxide Level 20 L Anion Gap 10 Blood Urea Nitrogen 38 H Creatinine 2.03 H Est Glomerular Filtrat Rate mL/min Glucose Level 101 Calcium Level 8.5 White Blood Count 12.2 H Red Blood Count 3.86 L Hemoglobin 11.3 L Hematocrit 35.1 L Mean Corpuscular Volume 90.9 Mean Corpuscular Hemoglobin 29.3 Mean Corpuscular Hemoglobin Concent 32.2 Red Cell Distribution Width 13.3 Platelet Count 261 Mean Platelet Volume 10.5 H Immature Granulocytes % 0.900 H Neutrophils % 61.6 Lymphocytes % 24.9 Monocytes % 9.8 Eosinophils % 2.1 Basophils % 0.7 Nucleated Red Blood Cells % 0.0 Immature Granulocytes # 0.110 H Neutrophils # 7.5 Lymphocytes # 3.0 H Monocytes # 1.2 H Eosinophils # 0.3 Basophils # 0.1 Nucleated Red Blood Cells # 0.0 Phosphorus Level 5.2 H Magnesium Level 2.0 Medications Medication Current Medications IV Flush (NS 3 ml) 3 ml PER PROTOCOL IV ; Start 03/04/19 at 11:00 Ondansetron HCl (Zofran Inj) 4 mg Q6H PRN IV NAUSEA/VOMITING; Start 03/04/19 at 11:00 Acetaminophen (Tylenol Tab) 650 mg Q6H PRN PO .PAIN 1-3 OR TEMP; Start 03/04/19 at 11:00 Arformoterol Tartrate (Brovana (Neb)) 2 ml BID RESP THERAPY INH Last administered on 03/09/19 08:45; Admin Dose 2 ML; Start 03/04/19 at 20:00 Metoprolol Succinate (Toprol Xl) 50 mg DAILY PO Last administered on 03/09/19 08:40; Admin Dose 50 MG; Start 03/05/19 at 09:00 Albuterol (Proventil 0.083% (Neb)) 2.5 mg Q2H RESP THERAPY PRN HHN SHORTNESS OF BREATH; Start 03/04/19 at 13:30 Heparin Sodium (Porcine) (Heparin (5000 Units/1ml)) 5,000 unit BID SC Last administered on 03/04/19 21:27; Admin Dose 5,000 UNIT; Start 03/04/19 at 21:00 Aspirin (Halfprin) 81 mg DAILY PO Last administered on 03/09/19 08:39; Admin Dose 81 MG; Start 03/05/19 at 09:00 Budesonide (Pulmicort (Neb)) 0.5 mg BID RESP THERAPY INH Last administered on 03/09/19 08:54; Admin Dose 0.5 MG; Start 03/04/19 at 20:00 Cholecalciferol (Vitamin D) 1,000 unit DAILY PO Last administered on 03/09/19 08:39; Admin Dose 1,000 UNIT; Start 03/05/19 at 09:30 Atorvastatin Calcium (Lipitor) 40 mg HS PO Last administered on 6/28/19at 20:59; Admin Dose 40 MG; Start 03/05/19 at 21:00 Fish Oil (Fish Oil) 2,000 mg BID PO Last administered on 03/09/19at 08:39; Admin Dose 2,000 MG; Start 03/05/19 at 10:00 Ampicillin Sodium/ Sulbactam Sodium 50 ml @ 100 mls/hr Q24H IVPB Last administered on 03/09/19at 17:18; Admin Dose 100 MLS/HR; Start 03/06/19 at 18:00 Clonazepam (Klonopin) 0.25 mg Q8 PRN PO ANXIETY; Start 03/07/19 at 14:00 ROZ LIMA Mar 09, 2019 17:32
[2019-03-09 20:41] VITALS: BP 124/59; PULSE 63; RESP 20
[2019-03-09] MEDS: ATORVASTATIN 40 MG TAB PO SCH (22:28)
[2019-03-10 02:27] VITALS: BP 149/73; PULSE 83; RESP 20
[2019-03-10 07:25] VITALS: BP 106/47; PULSE 55; RESP 16
[2019-03-10] MEDS: HEPARIN 5,000 UNIT/1 ML VIAL SC SCH (09:00)
[2019-03-10] MEDS: ASPIRIN (EC) 81 MG TAB PO SCH (09:02)
[2019-03-10] MEDS: FISH OIL 1,000 MG CAP PO SCH (09:02)
[2019-03-10] MEDS: CHOLECALCIFEROL 1,000 UNIT TAB PO SCH (09:02)
[2019-03-10] MEDS: METOPROLOL (XL) 50 MG TAB PO SCH (09:04)
[2019-03-10] MEDS: ARFORMOTEROL TARTRATE 15MCG/2 ML AMP INH SCH (09:07)
[2019-03-10] MEDS: BUDESONIDE (NEB) 0.5MG/2ML AMP INH SCH (09:07)
--- NOTE | 2019-03-10 10:29 | PN ---
DATE: 03/10/2019 SUBJECTIVE: The patient is stable, no events overnight. No fevers, chills, nausea or vomiting. OBJECTIVE: VITAL SIGNS: Blood pressure is 149/73, respirations 20, pulse 83, temperature 98.0. HEENT: Head is normocephalic. NECK: Supple. HEART: Regular rate. LUNGS: Show diminished breath sounds at the base. ABDOMEN: Soft, nontender to palpation without rebound or guarding. EXTREMITIES: Negative for clubbing, cyanosis, no edema. DERMATOLOGIC: No rashes. MUSCULOSKELETAL: No joint effusion. NEUROLOGIC: No change in exam. MEDICATIONS: Reviewed. LABORATORY DATA: Reviewed. ASSESSMENT AND PLAN: 1. Nonoliguric acute kidney injury on top of chronic kidney disease stage III. Etiology of acute ki dney injury is secondary to hemodynamics. Renal function is stabilized. Continue current treatment plans, supportive care, renally dose all medications. 2. Hypernatremia, improved. Continue to encourage free water intake. 3. Anemia. Continue to monitor hemoglobin and hematocrit levels. 4. Metabolic acidosis, improved. 5. Mineral bone disorder. Monitor calcium and phosphorus levels. 6. Acute encephalopathy, etiology is toxic metabolic. Continue to monitor. 7. Sepsis secondary to gram-negative bacteremia. Continue current antibiotic regimen. 8. Hypertension. Continue current blood pressure regimen. 9. History of chronic obstructive pulmonary disease. Dictated By: ASHANTI SEYMOUR DO NR/NTS Conf#: [id number] DID#: [id number] CC: MIESHA HERNANDEZ MD; SHEILA MARIE MD;*End*
[2019-03-10] MEDS ORDERED: ATOR40TA68 PO (11:41)
[2019-03-10] MEDS ORDERED: OMEG100024 PO (11:41)
[2019-03-10] MEDS ORDERED: ASPI-1044 PO (11:41)
[2019-03-10] MEDS ORDERED: LORA0.5T PO (11:43)
[2019-03-10] MEDS ORDERED: AMOX1TAB10 PO (11:43)
--- NOTE | 2019-03-10 11:45 | PDOCDIS ---
Discharge Instructions CONDITION [id number] Patient Condition: [id number] Fair HOME CARE INSTRUCTIONS: [id number] Special Diet: [id number] Mechanically chopped. OTHER ORDERS: Other Orders: 1. Take medications as per prescription. 2. Complete the course of antibiotics. 3. Provide the patient with a mechanical soft diet. 4. Please follow-up with your primary care physician in 2 weeks. 5. Please go to the nearest emergency room if you have persistent fevers, persistent nausea/vomiting, or any other unusual signs/symptoms. KI MARIE NP Mar 10, 2019 11:45
--- NOTE | 2019-03-10 12:48 | CONS ---
Consultation Date/Type/Reason Admit Date/Time Mar 04, 2019 at 05:47 Initial Consult Date SUBJECTIVE: Pt awake, afebrile, looks comfortable. VS: stable T: 97.3 LABS: Reviewed. WBC- 14.2 -elevated. Antimicrobials: Unasyn Physical examination: GEN: Chronically ill-appearing elderly woman, who is in no distress. HENT: Head atraumatic normocephalic sclera nonicteric vehicle mucosa dry; neck is supple PULM: chest rise symmetrical breath sounds diminished bases Heart: S1-S2 Abdomen: soft, bowel sounds present Extremities without cyanosis Assessment: 1. Staph bacteremia likely contaminant 2. Acute sinusitis and bilateral mastoiditis 3. Acute encephalopathy 4. Hypertension 5. History of CVA 6. Probable PNA per CXR. Plan: Pt is stable. Change antibiotics to Vanco and Zosyn secondary to possible PNA. Anticipate discharge on oral Augmentin to complete 2 weeks. Requesting Provider: KI MARIE NP Date/Time of Note DATE: 03/10/19 TIME: 12:45 Exam/Review of Systems Exam Vitals Vital Signs Date Temp Pulse Resp B/P (MAP) Pulse Ox O2 O2 Flow FiO2 Time Delivery Rate 03/10/19 86 18 97 21 09:11 03/10/19 97.8 106/47 Room Air 07:25 (66) Intake and Output 03/09/19 03/09/19 03/10/19 1515:00 23:00 07:00 IntakeIntake Total 400 ml BalanceBalance 400 ml Results Result Diagram: 03/10/19 0528 03/10/19 0528 Results 24hrs Laboratory Tests Test 03/10/19 05:28 White Blood Count 14.2 H Red Blood Count 3.52 L Hemoglobin 10.3 L Hematocrit 32.2 L Mean Corpuscular Volume 91.5 Mean Corpuscular Hemoglobin 29.3 Mean Corpuscular Hemoglobin Concent 32.0 Red Cell Distribution Width 13.2 Platelet Count 248 Mean Platelet Volume 11.1 H Immature Granulocytes % 0.600 H Neutrophils % 63.1 Lymphocytes % 24.8 Monocytes % 8.9 Eosinophils % 1.7 Basophils % 0.9 Nucleated Red Blood Cells % 0.0 Immature Granulocytes # 0.090 H Neutrophils # 9.0 H Lymphocytes # 3.5 H Monocytes # 1.3 H Eosinophils # 0.2 Basophils # 0.1 Nucleated Red Blood Cells # 0.0 Sodium Level 143 Potassium Level 4.6 Chloride Level 112 H Carbon Dioxide Level 21 Anion Gap 10 Blood Urea Nitrogen 41 H Creatinine 2.10 H Est Glomerular Filtrat Rate mL/min Glucose Level 103 Calcium Level 8.9 Phosphorus Level 4.6 Magnesium Level 2.1 Medications Medication Current Medications IV Flush (NS 3 ml) 3 ml PER PROTOCOL IV ; Start 03/04/19 at 11:00 Ondansetron HCl (Zofran Inj) 4 mg Q6H PRN IV NAUSEA/VOMITING; Start 03/04/19 at 11:00 Acetaminophen (Tylenol Tab) 650 mg Q6H PRN PO .PAIN 1-3 OR TEMP; Start 03/04/19 at 11:00 Arformoterol Tartrate (Brovana (Neb)) 2 ml BID RESP THERAPY INH Last administered on 03/10/19 09:07; Admin Dose 2 ML; Start 03/04/19 at 20:00 Metoprolol Succinate (Toprol Xl) 50 mg DAILY PO Last administered on 03/10/19 09:04; Admin Dose 50 MG; Start 03/05/19 at 09:00 Albuterol (Proventil 0.083% (Neb)) 2.5 mg Q2H RESP THERAPY PRN HHN SHORTNESS OF BREATH; Start 03/04/19 at 13:30 Heparin Sodium (Porcine) (Heparin (5000 Units/1ml)) 5,000 unit BID SC Last administered on 03/04/19 21:27; Admin Dose 5,000 UNIT; Start 03/04/19 at 21:00 Aspirin (Halfprin) 81 mg DAILY PO Last administered on 03/10/19 09:02; Admin Dose 81 MG; Start 03/05/19 at 09:00 Budesonide (Pulmicort (Neb)) 0.5 mg BID RESP THERAPY INH Last administered on 03/10/19 09:07; Admin Dose 0.5 MG; Start 03/04/19 at 20:00 Cholecalciferol (Vitamin D) 1,000 unit DAILY PO Last administered on 03/10/19 09:02; Admin Dose 1,000 UNIT; Start 03/05/19 at 09:30 Atorvastatin Calcium (Lipitor) 40 mg HS PO Last administered on 03/09/19 22:28; Admin Dose 40 MG; Start 03/05/19 at 21:00 Fish Oil (Fish Oil) 2,000 mg BID PO Last administered on 03/10/19at 09:02; Admin Dose 2,000 MG; Start 03/05/19 at 10:00 Ampicillin Sodium/ Sulbactam Sodium 50 ml @ 100 mls/hr Q24H IVPB Last administ ered on 03/09/19at 17:18; Admin Dose 100 MLS/HR; Start 03/06/19 at 18:00 Clonazepam (Klonopin) 0.25 mg Q8 PRN PO ANXIETY; Start 03/07/19 at 14:00 ROZ LIMA Mar 10, 2019 12:47
--- NOTE | 2019-03-10 14:59 | DS ---
Date/Time of Note Date/Time of Note DATE: 03/10/19 TIME: 14:59 Discharge Summary Admission/Discharge Info Admit Date/Time Mar 04, 2019 at 05:47 Discharge Date/Time Mar 10, 2019 at 13:10 Discharge Diagnosis 1. Acute encephalopathy. 2. Suspect sinusitis. 3. Acute on chronic kidney disease. 4. Hypertension. 5. History of stroke. 6. COPD. 7. Normocytic anemia. 8. Dyslipidemia. 9. Carotid artery disease. Patient Condition: Stable Consults 1. Brigitte Vargas MD, Neurology. 2. Fadi Molina MD, Infectious Diseases. 3. Zachery Ignacio DO, Nephrology. 4. Yoana Gaffney NP, Psychiatry. Procedures 2D Echocardiogram Conclusions: Normal left ventricular systolic function. Normal left ventricular cavity size. Moderate asymmetric septal hypertrophy. Ejection fraction is visually estimated at 65 %. Tissue Doppler/Mitral Doppler indices are consistent with impaired relaxation (Stage I diastolic dysfunction). The left atrium is normal in size. Mild mitral leaflet calcification. Mild mitral annular calcification. Trace mitral regurgitation. Aortic cusps appear mildly calcified. Mild to moderate aortic valve regurgitation. Normal appearance of the tricuspid valve. Unable to obtain RVSP due to minimal presence of tricuspid regurgitation. Normal size and normal respiratory collapse consistent with normal right atrial pressure. DIAGNOSTIC IMAGING REPORT Patient: MELINA ROA : 1930 Age: 89 Sex: F MR #: [id number] DOS: 03/04/19 1307 Ordering MD: KI MARIE NP [facility]: [facility] PROCEDURE: MR Brain without contrast. CLINICAL INDICATION: Altered level of consciousness TECHNIQUE: An MRI of the brain was performed on a GE short bore high- definition 3 royce scanner utilizing the following sequences: Sagittal and axial T1 weighted, axial T2 weighted, coronal GRE, axial diffusion weighted with ADC mapping, and axial FLAIR. COMPARISON: CT brain same day, earlier FINDINGS: No diffusion weighted abnormalities are seen to suggest the presence of acute ischemia or recent infarct. There is no evidence of intracranial hemorrhage, mass effect, or midline shift. There is prominence of the ventricles and sulci, more most pronounced within the left posterior frontal and parietal lobes with associated old infarcts of the left deleon radiata and external capsule with surrounding gliosis and ex vacuo dilatation of the left lateral ventricle. Confluent periventricular white matter FLAIR T2 hyperintensity is seen within the right cerebral hemisphere. There is mild left-sided Wallerian degeneration with hyperintense signal within the azucena belly. Old bilateral small cerebellar infarcts, greater on the right are present. Brain susceptibility artifact is seen within the basal ganglia consistent with calcification with a single focus within the right azucena belly. No extra-axial fluid collections are seen. Normal flow voids are visible in the proximal intracranial arteries and dural sinuses, indicating patency. The visualized paranasal sinuses demonstrate bilateral maxillary and right sphenoid mucosal thickening with patchy bilateral mastoid air cell disease. IMPRESSION: MRI of the brain demonstrates no acute pathology. Old left deleon radiata and external capsule lacunar infarcts are seen with surrounding volume loss, gliosis and ex vacuo dilatation of the left lateral ventricle resulting in also in left-sided Wallerian degeneration. Images of the right cerebral hemisphere also demonstrate generalized volume loss with microvascular changes. Multiple bilateral old cerebellar infarcts, greater on the right. Patchy paranasal sinus disease and bilateral mastoid air cell disease. RPTAT: [facility] Wilbert Dunlap, Physician Date Time [place] [address] Radiology Main Line: [phone] DIAGNOSTIC IMAGING REPORT Patient: MELINA ROA : 1930 Age: 89 Sex: F MR #: [id number] DOS: 03/04/19 0000 Ordering MD: KI MARIE NP Location: [facility] Room/Bed: [facility] PROCEDURE: US Carotids. CLINICAL INDICATION: Dizziness. Syncope. TECHNIQUE: Multiple sonographic images of the carotid and vertebral arteries were obtained utilizing mckay scale, duplex and color-flow imaging. The images were reviewed on a PACS workstation. COMPARISON: Report March 19, 2016. FINDINGS: Evaluation of the right carotid bifurcation region reveals a large amount of atherosclerotic disease. A visual 64% stenosis is noted in the distal right common carotid artery. Evaluation of the left carotid bifurcation region reveals a [id number] amount of atherosclerotic disease. A visual 54% stenosis is noted in the left carotid bulb. There is antegrade flow within the vertebral arteries bilaterally. RIGHT CAROTID MEASUREMENTS: Common Carotid Artery 92 (cm/sec) Internal Carotid Artery - proximal 121 (cm/sec) Internal Carotid Artery - mid 95 (cm/sec) Internal Carotid Artery - distal 73 (cm/sec) External Carotid Artery 160 (cm/sec) Vertebral Artery 46 (cm/sec) Internal Carotid/Common Carotid 1.3 LEFT CAROTID MEASUREMENTS: Common Carotid Artery 74 (cm/sec) Internal Carotid Artery - proximal 50 (cm/sec) Internal Carotid Artery - mid 56 (cm/sec) Internal Carotid Artery - distal 60 (cm/sec) External Carotid Artery 204 (cm/sec) Vertebral Artery 37 (cm/sec) Internal Carotid/Common Carotid 0.8 IMPRESSION: Visual 64% stenosis in the distal right common carotid artery, without and elevated velocity. Visual 54% stenosis in the left carotid bulb, without an elevated velocity. Elevated velocities in the bilateral external carotid arteries, possibly indicating 50 - 69% stenoses. Antegrade flow in the vertebral arteries bilaterally. If further characterization of the arterial vasculature is needed CTA is recommended. Validated velocity measurements with angiographic measurements, velocity criteria are extrapolated from diameter data as defined by the Society of Radiologists in Ultrasound Consensus Conference Radiology 2003; 229; 340 - 346. This study does indirectly reference the measurement of the distal internal carotid artery diameter as the denominator for stenosis measurement. RPTAT: AA .Evens Dickey MD, MD Date Time Electronically viewed and signed by .Evens Dickey MD, MD on 03/04/2019 20:57 Hx of Present Illness This is an 89-year-old female with comorbidities including hypertension, COPD, stroke with chronic bedridden status, and CKD. The patient was brought to the emergency room by family members because of confusion. The patient was also refusing to eat or drink. There was no reported vomiting or fevers. The patient is bedridden since her stroke and she is being taken care of by her family members. The patient is not primarily Albanian speaking and therefore, the details were obtained by reviewing the chart and by talking to the staff. In the emergency room, the patient was noticed to have a BUN and creatinine 42 and 2 respectively. The patient's brain CT scan was negative for any acute findings. The patient's chest x-ray was negative for any acute findings. The patient's urinalysis was negative for any evidence of any infection. Hospital Course The patient was admitted to inpatient setting. A neurology and psych consult was obtained. Etiology of the patient's underlying acute encephalopathy was extensively evaluated. The patient's brain CT and brain MRI was negative for any acute findings. The patient had Gram-positive bacteremia, that was not thought as a likely cause of her underlying encephalopathy. However, later it was concluded that the patient's Gram-positive bacteremia was most probably secondary to sample contamination. Infectious disease was following the patient throughout the hospital course. The patient's brain MRI showed patchy paranasal sinus disease and bilateral mastoid air cell disease. Therefore, the patient was treated for sinusitis and will complete a course of antimicrobial therapy for 2 weeks. The patient's mental status improved with the treatment strategy. The patient was evaluated by psychiatry who recommended as needed anxiolytics. Neurology recommended supportive care. The patient is chronically bedridden and therefore physical therapy did not evaluate the patient. The patient was evaluated by speech therapy and was maintained on a pured diet because of no dentition. The patient had evidence of acute on chronic kidney disease. The patient was being followed by nephrology. Nephrotoxic drugs were used with caution on this patient. She has underlying hypertension and the patient was maintained on antihypertensives. Her ARBs were put on hold because of worsening renal function. The patient has a history of stroke. She was maintained on aspirin and statin. The patient's statin therapy was increased and the patient was also started on omega-3 fatty acids because of the patient's unsatisfactory lipid panel. She has a history of COPD. She was maintained on scheduled LABA and PRN EDELMIAR. The patient did not have any evidence of any COPD exacerbation. The patient has underlying dyslipidemia. As mentioned earlier, the patient's statin dosing was optimized. Patient was also noticed evidence of carotid disease with a Doppler study showing bilateral carotid artery stenosis. The patient is not a good candidate for any invasive procedures for further evaluation of her carotid artery disease including a neck CTA. Therefore, the patient was managed medically by optimizing the patient's medications. The patient is bedridden for the past few years and the patient is being taken care of her family members at home. The patient's family requested to be transferred to to home. Ambulance for transport was arranged by family service caseworker for discharging the patient home. Discharge Instructions 1. Take medications as per prescription. 2. Complete the course of antibiotics. 3. Provide the patient with a mechanical soft diet. 4. Please follow-up with your primary care physician in 2 weeks. 5. Please go to the nearest emergency room if you have persistent fevers, persistent nausea/vomiting, or any other unusual signs/symptoms. The patient's family verbalized understanding of the discharge instructions. At this time I would like to thank all the consultants for seeing the patient and providing clinical recommendations. The patient was seen in collaboration with Dr. Rehman. Home Meds Active Scripts Lorazepam* (Lorazepam*) 0.5 Mg Tablet, 0.5 MG PO Q8 PRN for ANXIETY, #5 TAB Prov:KI MARIE NP 03/10/19 Amoxicillin/Potassium Clav (Amox-Clav 875-125 mg Tablet) 875-125 mg Tab, 1 TAB PO BID for 10 Days, #20 TAB Prov:KI MARIE NP 03/10/19 [place]-3/Dha/Epa/Fish Oil (Fish Oil 1,000 mg Softgel) 1,000 Mg Capsule, 2000 MG PO BID for 30 Days, #120 CAP 2 Caps (2000 mg) PO BID. Prov:KI MARIE NP 03/10/19 Atorvastatin* (Atorvastatin*) 40 Mg Tablet, 40 MG PO HS, #30 TAB Prov:KI MARIE NP 03/10/19 Aspirin Delayed Release (Aspirin Delayed Release) 81 Mg Tablet.dr, 81 MG PO DAILY, #30 TAB Prov:KI MARIE NP 03/10/19 Metoprolol Succinate* (Toprol XL*) 50 Mg Tab.er.24h, 50 MG PO DAILY for 30 Days, #30 TAB 3 Refills Prov:RAKAN REHMAN MD 02/10/19 Albuterol Sulfate* (Ventolin HFA*) 18 Gm Hfa.aer.ad, 2 PUFF INHALATION Q4H PRN for SHORTNESS OF BREATH, #1 INHALER 5 Refills Prov:RAKAN REHMAN MD 02/10/19 Budesonide-Formoterol Fumarate* (Symbicort*) 160-4.5 Hfa.aer.ad, 2 PUFF INHALATION BID, #1 EACH 4 Refills Prov:RAKAN REHMAN MD 02/10/19 Discontinued Reported Medications Atorvastatin Calcium (Atorvastatin Calcium) 10 Mg Tablet, 10 MG PO QHS, #30 TAB 02/06/19 Losartan Potassium* (Losartan Potassium*) 100 Mg Tablet, 100 MG PO DAILY, TAB 02/06/19 Discontinued Scripts Prednisone* (Prednisone*) 20 Mg Tab, 40 MG PO DAILY for 4 Days, #4 TAB Prov:RAKAN REHMAN MD 02/10/19 Follow-up Plan Patient to follow-up with her primary care physician in 1 week. Primary Care Provider Not On Staff Doctor Time spent on discharge: > 30 minutes Pending Labs Laboratory Tests Test 03/10/19 05:28 White Blood Count 14.2 10^3/ul (4.8-10.8) Red Blood Count 3.52 10^6/ul (4.20-5.40) Hemoglobin 10.3 g/dl (12.0-16.0) Hematocrit 32.2 % (37.0-47.0) Mean Corpuscular Volume 91.5 fl (82.0-101.0) Mean Corpuscular Hemoglobin 29.3 pg (29.0-33.0) Mean Corpuscular Hemoglobin Concent 32.0 g/dl (32.0-37.0) Red Cell Distribution Width 13.2 % (11.5-14.5) Platelet Count 248 10^3/UL (140-415) Mean Platelet Volume 11.1 fl (7.4-10.4) Immature Granulocytes % 0.600 % (0.001-0.429) Neutrophils % 63.1 % (39.0-77.0) Lymphocytes % 24.8 % (15.0-51.0) Monocytes % 8.9 % (0.0-11.0) Eosinophils % 1.7 % (0.0-7.0) Basophils % 0.9 % (0.0-2.0) Nucleated Red Blood Cells % 0.0 /100WBC (0.0-0.0) Immature Granulocytes # 0.090 10^3/ul (0.0-0.031) Neutrophils # 9.0 10^3/ul (1.6-7.5) Lymphocytes # 3.5 10^3/ul (0.8-2.9) Monocytes # 1.3 10^3/ul (0.3-0.9) Eosinophils # 0.2 10^3/ul (0.0-0.5) Basophils # 0.1 10^3/ul (0.0-0.1) Nucleated Red Blood Cells # 0.0 10^3/ul (0.0-0.0) Sodium Level 143 mmol/L (135-144) Potassium Level 4.6 mmol/L (3.5-5.1) Chloride Level 112 mmol/L (97-110) Carbon Dioxide Level 21 mmol/L (21-31) Anion Gap 10 (5-13) Blood Urea Nitrogen 41 mg/dl (7-20) Creatinine 2.10 mg/dl (0.44-1.00) Est Glomerular Filtrat Rate mL/min mL/min (>60) Glucose Level 103 mg/dl (70-220) Calcium Level 8.9 mg/dl (8.4-10.2) Phosphorus Level 4.6 mg/dl (2.5-4.9) Magnesium Level 2.1 mg/dl (1.7-2.5) KI MARIE NP Mar 10, 2019 14:59
== END 2019-03-10 13:10 | disposition home or self-care (01) | DRG 92 ==
LOC: E/R 02:14 → PP2 05:47 → EDBEDREQSVC 10:19 → CANRESERV 10:36
PROVIDERS: ADMIT Internal Medicine; ATTEND Internal Medicine
DX: G92 Toxic encephalopathy (principal); I69.351 Hemiplegia and hemiparesis following cerebral infarction affecting right dominant side; N17.9 Acute kidney failure, unspecified; E87.2 Acidosis; E87.0 Hyperosmolality and hypernatremia; E11.22 Type 2 diabetes mellitus with diabetic chronic kidney disease; I12.9 Hypertensive chronic kidney disease with stage 1 through stage 4 chronic kidney disease, or unspecified chronic kidney disease; N18.3 Chronic kidney disease, stage 3 (moderate); J44.9 Chronic obstructive pulmonary disease, unspecified; Z74.01 Bed confinement status; D64.9 Anemia, unspecified; J01.90 Acute sinusitis, unspecified; H70.93 Unspecified mastoiditis, bilateral
CPT/HCPCS: 36415; 70450; 70551; 71045; 76775; 80048; 80053; 80061; 81001; 81003; 82043; 82306; 82550; 82553; 82652; 83036; 83605; 83735; 83970; 84100; 84155; 84300; 84439; 84443; 84484; 85025; 87086; 92526; 92610; 93005; 93306; 93880; 94640; 94664; J0295; J1630; J1644; J2060; J3370; J7030; J7040; J7050; J7070

== ENCOUNTER 2019-05-05 16:12 | Inpatient (IN) | payer MEDICARE, OTHER ==
[~2019-05-05] VITALS: Ht 152.4 cm; Wt 62.1 kg
[~2019-05-05 16:12] MED LIST changes: +AMOX1TAB10 PO; +APIX5TAB PO; +ASPI-1044 PO; +ASPI81TA52 PO; -ATOR10TA65 PO; +ATOR40TA68 PO; +BICS PO; +DRON400T2 PO; +LORA0.5T PO; +LOSA50TA2 PO; +METO-335 PO; +OMEG100024 PO; +ONDA4TAB95 PO; -PRED20TA PO
[2019-05-05] MEDS ORDERED: DILTIAZEM-D5W 125MG/125ML DRIP 125 ML IV STA (16:16)
[2019-05-05] MEDS ORDERED: DILTIAZEM 25 MG INJ IV STA (16:16)
[2019-05-05] MEDS ORDERED: MAGNESIUM SULFATE 2 GM/50 ML 50 ML IVPB STA (16:16)
[2019-05-05] MEDS ORDERED: SOD CHLORIDE 0.9% 1,000 ML IV STA (16:16)
[2019-05-05] MEDS ORDERED: ASPIRIN 300 MG SUPP PR STA (16:16)
[2019-05-05] MEDS ORDERED: ONDANSETRON 4 MG INJ IV PRN (19:00)
[2019-05-05] MEDS ORDERED: ACETAMINOPHEN 325 MG TAB PO PRN ×2 (19:00→20:00)
[2019-05-05] MEDS ORDERED: NACL 0.9% 3 ML SYG IV SCH (20:00)
[2019-05-05] MEDS ORDERED: ONDANSETRON 4 MG TAB PO PRN (20:00)
[2019-05-05] MEDS ORDERED: morphine 2 MG INJ IV PRN (20:00)
[2019-05-05 21:47] VITALS: BP 162/75; PULSE 75; RESP 18
[2019-05-05 22:00] VITALS: Ht 152.4 cm; Wt 62.1 kg
[2019-05-06 00:08] VITALS: BP 144/65; PULSE 76; RESP 18
[2019-05-06 04:04] VITALS: BP 125/58; PULSE 68; RESP 18
[2019-05-06 07:35] VITALS: BP 147/66; PULSE 83; RESP 20
[2019-05-06] MEDS: METOPROLOL (XL) 50 MG TAB PO SCH (09:00)
[2019-05-06] MEDS ORDERED: ASPIRIN (EC) 81 MG TAB PO SCH (09:00)
[2019-05-06] MEDS: LOSARTAN 50 MG TAB PO SCH (09:00)
[2019-05-06 10:51] VITALS: BP 142/76; PULSE 80; RESP 20
[2019-05-06] MEDS ORDERED: ASPIRIN (EC) 81 MG TAB PO ONE (12:00)
[2019-05-06 14:58] VITALS: BP 135/61; PULSE 77; RESP 20
[2019-05-06 20:00] VITALS: BP 137/61; PULSE 70; RESP 19
[2019-05-06] MEDS: DRONEDARONE HYDROCHLORIDE 400 MG TAB PO SCH (20:07)
[2019-05-06] MEDS: APIXABAN 5 MG TABLET PO SCH (20:07)
[2019-05-06] MEDS: ATORVASTATIN 40 MG TAB PO SCH (20:07)
[2019-05-07] VITALS: BP 105/49; PULSE 69; RESP 18
[2019-05-07 04:00] VITALS: BP 92/43; PULSE 62; RESP 18
[2019-05-07 07:58] VITALS: BP 109/53; PULSE 61; RESP 17
[2019-05-07] MEDS ORDERED: ASPIRIN (EC) 81 MG TAB PO SCH (09:00)
[2019-05-07] MEDS: LOSARTAN 50 MG TAB PO SCH (09:00)
[2019-05-07] MEDS: APIXABAN 5 MG TABLET PO SCH ×2 (09:23→20:25)
[2019-05-07] MEDS: CITRIC ACID/NA CITRATE 30 ML CUP PO SCH ×2 (09:26→20:25)
[2019-05-07] MEDS: DRONEDARONE HYDROCHLORIDE 400 MG TAB PO SCH ×2 (09:26→17:55)
[2019-05-07] MEDS: METOPROLOL (XL) 50 MG TAB PO SCH (09:26)
[2019-05-07 11:24] VITALS: BP 112/58; PULSE 62; RESP 17
[2019-05-07 15:33] VITALS: BP 88/50; PULSE 65; RESP 17
[2019-05-07 20:00] VITALS: BP 102/51; PULSE 60; RESP 19
[2019-05-07] MEDS: ATORVASTATIN 40 MG TAB PO SCH (20:25)
[2019-05-08] VITALS: BP 99/48; PULSE 60; RESP 18
[2019-05-08 04:00] VITALS: BP_SYST 107; BP_SYST 121; BP_DIAS 57; BP_DIAS 58; PULSE 62; PULSE 72; RESP 18; RESP 19
[2019-05-08 08:28] VITALS: BP 128/57; PULSE 59; RESP 18
[2019-05-08] MEDS ORDERED: LOSARTAN 50 MG TAB PO SCH (09:00)
[2019-05-08] MEDS ORDERED: METOPROLOL (XL) 25 MG TAB PO SCH (09:00)
[2019-05-08] MEDS: CITRIC ACID/NA CITRATE 30 ML CUP PO SCH (09:14)
[2019-05-08] MEDS: APIXABAN 5 MG TABLET PO SCH (09:15)
[2019-05-08] MEDS: DRONEDARONE HYDROCHLORIDE 400 MG TAB PO SCH ×2 (09:17→18:42)
[2019-05-08] MEDS ORDERED: NA POLYST SULFON 15 GM/60 ML BTL PO ONE (09:30)
[2019-05-08 11:05] VITALS: BP 84/51; PULSE 71; RESP 16
[2019-05-08 11:12] VITALS: BP 109/53
== END 2019-05-08 20:40 | disposition home or self-care (01) | DRG 683 ==
LOC: E/R 16:12 → SUATTDRO 18:30 → TEL 18:32
PROVIDERS: ADMIT Internal Medicine; ATTEND Hospitalist
DX: I12.9 Hypertensive chronic kidney disease with stage 1 through stage 4 chronic kidney disease, or unspecified chronic kidney disease (principal); E87.2 Acidosis; I69.351 Hemiplegia and hemiparesis following cerebral infarction affecting right dominant side; N18.4 Chronic kidney disease, stage 4 (severe); I48.0 Paroxysmal atrial fibrillation; R07.9 Chest pain, unspecified; Z74.01 Bed confinement status; J44.9 Chronic obstructive pulmonary disease, unspecified; D64.9 Anemia, unspecified
CPT/HCPCS: 36415; 71045; 78582; 80048; 80053; 80061; 81001; 81003; 82043; 82550; 82553; 83036; 83735; 83880; 84100; 84155; 84300; 84436; 84439; 84443; 84479; 84484; 85025; 85378; 85610; 85730; 93005; 93306; 93970; 96374; 96375; 97162; 97166; A4310; A9540; J3475; J7030